=== PATIENT | female | born 1960 | race Caucasian/White ===

== ENCOUNTER 2021-01-18 14:08 | Emergency (ER) | payer OTHER ==
[2021-01-18 14:15] VITALS: RESP 16
[2021-01-18] MEDS ORDERED: diphenhydrAMINE 50 MG CAP PO STA (14:33)
[2021-01-18] MEDS ORDERED: methylPREDNISolone SOD SUCCI 125 MG/2 ML VIAL IV STA (14:33)
[2021-01-18] MEDS ORDERED: FAMOTIDINE 20 MG/2 ML VIAL IV STA (14:33)
[2021-01-18] MEDS ORDERED: SODIUM CHLORIDE 0.9% 1,000 ML IV STA (14:33)
--- NOTE | 2021-01-18 15:19 | XR ---
EXAMINATION TYPE: XR chest 2V DATE OF EXAM: 01/18/2021 COMPARISON: NONE HISTORY: Shortness of breath. TECHNIQUE: Frontal and lateral views of the chest are obtained. FINDINGS: There is no focal air space opacity, pleural effusion, or pneumothorax seen. The cardiac silhouette size is within normal limits. The osseous structures are intact. IMPRESSION: No acute cardiopulmonary process.
[2021-01-18 15:49] LABS: Basophils # (A) 0.1 k/uL (0-0.2); Basophils % (A) 1 %; Eosinophils # (A) 0.4 k/uL (0-0.7); Eosinophils % (A) 3 %; HCT 40.8 % (34.0-46.0); HGB 13.8 gm/dL (11.4-16.0); Lymphocytes # (A) 3.1 k/uL (1.0-4.8); Lymphocytes % (A) 24 %; MCH 31.8 pg (25.0-35.0); MCHC 33.8 g/dL (31.0-37.0); Mean Platelet Volume 8.3; Monocytes # (A) 0.8 k/uL (0-1.0); Monocytes % (A) 6 %; Neutrophils # (A) 8.3 k/uL (1.3-7.7); Neutrophils % (A) 65 %; Platelet Count 240 k/uL (150-450); RBC 4.33 m/uL (3.80-5.40); RDW 13.3 % (11.5-15.5); WBC 12.8 k/uL (3.8-10.6)
--- NOTE | 2021-01-18 15:52 | ED ---
Allergic Reaction HPI - General Chief complaint: Allergic Reaction Stated complaint: medicine allergy Time Seen by Provider: 01/18/21 14:17 Source: patient, family, RN notes reviewed Mode of arrival: wheelchair Limitations: no limitations - History of Present Illness Initial Comments: Patient is a 60-year-old female that presents to emergency department complaining of an ALLERGIC reaction to her new pain medication. The pain medication is called Belbuca. She notes that she started this medication 2 days ago and today she feels like she is having some shortness of breath. She is able to talk and swallow with no issue. She did not appear to be in any distress or pain while sitting up in bed during the exam interview. Daughter notes that patient was told to continue the medication unless the ER told her otherwise. She denied any chest pain headache nausea vomiting diarrhea constipation fever fatigue chills dysphagia feeling like her throat is swollen. - Related Data Allergies Allergy/AdvReac Type Severity Reaction Status Date / Time celecoxib [From Celebrex] Allergy Unknown Verified 01/18/21 14:14 Childhood duloxetine [From Cymbalta] Allergy Itching Verified 01/18/21 14:14 omeprazole [From Prilosec] Allergy Unknown Verified 01/18/21 14:14 Childhood Review of Systems ROS Statement: Those systems with pertinent positive or pertinent negative responses have been documented in the HPI. ROS Other: All systems not noted in ROS Statement are negative. Past Medical History Additional Past Medical History / Comment(s): back pain History of Any Multi-Drug Resistant Organisms: None Reported Past Surgical History: Orthopedic Surgery Past Psychological History: No Psychological Hx Reported Smoking Status: Former smoker Past Alcohol Use History: None Reported Past Drug Use History: None Reported General Exam Limitations: no limitations General appearance: alert, in no apparent distress Head exam: Present: atraumatic, normocephalic, normal inspection Eye exam: Present: normal appearance, PERRL, EOMI. Absent: scleral icterus, conjunctival injection, periorbital swelling Neck exam: Present: normal inspection Respiratory exam: Present: normal lung sounds bilaterally. Absent: respiratory distress, wheezes, rales, rhonchi, stridor Cardiovascular Exam: Present: regular rate, normal rhythm, normal heart sounds. Absent: systolic murmur, diastolic murmur, rubs, gallop, clicks GI/Abdominal exam: Present: soft, normal bowel sounds. Absent: distended, tenderness, guarding, rebound, rigid Extremities exam: Present: normal inspection, normal capillary refill. Absent: tenderness, pedal edema, joint swelling, calf tenderness Neurological exam: Present: alert, oriented X3 Psychiatric exam: Present: normal affect, normal mood Skin exam: Present: warm, dry, intact, normal color. Absent: rash Course Vital Signs 01/18/21 14:10 Temperature 98.1 F Pulse Rate 107 H Respiratory 16 Rate Blood Pressure 122/83 O2 Sat by Pulse 98 Oximetry Medical Decision Making - Medical Decision Making 60-year-old female complaining of ALLERGIC reaction to her new pain medication. Basic labs, chest x-ray, EKG, 125 mg of Solu-Medrol, 50 mg of Benadryl, 20 mg of Pepcid ordered. EKG within normal limits, chest x-ray no acute cardiopulmonary process. Case discussed with Dr. Littlejohn, patient can discharge home with follow-up to pain medicine DrTiff to discuss possibly changing medication. - Lab Data Result diagrams: 01/18/21 14:53 01/18/21 14:53 Lab Results 01/18/21 01/18/21 Range/Units 14:53 14:53 WBC 12.8 H (3.8-10.6) k/uL RBC 4.33 (3.80-5.40) m/uL Hgb 13.8 (11.4-16.0) gm/dL Hct 40.8 (34.0-46.0) % MCV 94.0 (80.0-100.0) fL MCH 31.8 (25.0-35.0) pg MCHC 33.8 (31.0-37.0) g/dL RDW 13.3 (11.5-15.5) % Plt Count 240 (150-450) k/uL MPV 8.3 Neutrophils % 65 % Lymphocytes % 24 % Monocytes % 6 % Eosinophils % 3 % Basophils % 1 % Neutrophils # 8.3 H (1.3-7.7) k/uL Lymphocytes # 3.1 (1.0-4.8) k/uL Monocytes # 0.8 (0-1.0) k/uL Eosinophils # 0.4 (0-0.7) k/uL Basophils # 0.1 (0-0.2) k/uL Sodium 140 (137-145) mmol/L Potassium 4.5 (3.5-5.1) mmol/L Chloride 108 H (98-107) mmol/L Carbon Dioxide 24 (22-30) mmol/L Anion Gap 8 mmol/L BUN 14 (7-17) mg/dL Creatinine 0.68 (0.52-1.04) mg/dL Est GFR (CKD-EPI)AfAm >90 (>60 ml/min/1.73 sqM) Est GFR (CKD-EPI)NonAf >90 (>60 ml/min/1.73 sqM) Glucose 110 H (74-99) mg/dL Calcium 9.1 (8.4-10.2) mg/dL - EKG Data -: EKG Interpreted by Mi EKG shows normal: sinus rhythm Rate: normal EKG Comments: Ventricular rate 89 bpm, MN interval 166 ms, QRS duration 80 ms, QTC 433 ms, PRT axes 70/49/41. Normal sinus rhythm, normal ECG. - Radiology Data Radiology results: report reviewed, image reviewed Chest x-ray: No acute cardiopulmonary process. Disposition Clinical Impression: Allergic reaction to drug Disposition: HOME SELF-CARE Condition: Stable Instructions (If sedation given, give patient instructions): Allergies (ED) Additional Instructions: Please return to the Emergency Department if symptoms worsen or any other concerns. Follow-up with pain medication prescribing doctor to discuss alternatives. Quit taking medication until he can speak with your primary. Take Benadryl as needed for continuing symptoms. Is patient prescribed a controlled substance at d/c from ED?: No Referrals: None,Stated [Primary Care Provider] - 1-2 days Time of Disposition: 16:21
[2021-01-18 16:07] LABS: African American GFR (CKD) >90 (>60 ml/min/1.73 sqM); Anion Gap 8 mmol/L; Blood Urea Nitrogen 14 mg/dL (7-17); Calcium 9.1 mg/dL (8.4-10.2); Carbon Dioxide 24 mmol/L (22-30); Chloride 108 mmol/L (98-107); Glucose 110 mg/dL (74-99); Non-African American GFR(CKD) >90 (>60 ml/min/1.73 sqM); Potassium 4.5 mmol/L (3.5-5.1); Sodium 140 mmol/L (137-145)
[2021-01-18 16:39] VITALS: BP 134/78; PULSE 78; TEMP 98
== END 2021-01-18 16:38 | disposition home or self-care (01) ==
LOC: EC 14:08
DX: R06.02 Shortness of breath (principal); T40.695A Adverse effect of other narcotics, initial encounter; Z88.6 Allergy status to analgesic agent; Z88.8 Allergy status to other drugs, medicaments and biological substances; Z87.891 Personal history of nicotine dependence
CPT/HCPCS: 99285; 96374; 96375; 96361; 36415; 80048; 85025; 71046; J2930; 93005

== ENCOUNTER 2023-09-10 20:08 | Inpatient (IN) | payer BC ==
[2023-09-10] MEDS: ACETAMINOPHEN TAB 325 MG TAB PO STA (21:22)
[2023-09-10] MEDS: SODIUM CHLORIDE 0.9% 1,000 ML IV ONE (21:22)
[2023-09-10 21:33] LABS: Basophils % (A) 0 %; Eosinophils # (A) 0.1 k/uL (0-0.7); Eosinophils % (A) 0 %; Lymphocytes # (A) 1.3 k/uL (1.0-4.8); Lymphocytes % (A) 9 %; MCH 32.5 pg (25.0-35.0); MCHC 33.5 g/dL (31.0-37.0); Mean Platelet Volume 9.6; Monocytes # (A) 1.4 k/uL (0-1.0); Monocytes % (A) 10 %; Neutrophils # (A) 11.4 k/uL (1.3-7.7); Neutrophils % (A) 79 %; Platelet Count 203 k/uL (150-450); RBC 3.71 m/uL (3.80-5.40); RDW 13.5 % (11.5-15.5); WBC 14.5 k/uL (3.8-10.6)
[2023-09-10 21:43] LABS: ALT 15 U/L (4-34); AST 19 U/L (14-36); African American GFR (CKD) 64 (>60 ml/min/1.73 sqM); Albumin 3.3 g/dL (3.5-5.0); Alkaline Phosphatase 94 U/L (38-126); Anion Gap 10 mmol/L; Blood Urea Nitrogen 20 mg/dL (7-17); Calcium 8.7 mg/dL (8.4-10.2); Carbon Dioxide 17 mmol/L (22-30); Chloride 109 mmol/L (98-107); Glucose 143 mg/dL (74-99); Non-African American GFR(CKD) 55 (>60 ml/min/1.73 sqM); Potassium 3.8 mmol/L (3.5-5.1); Sodium 136 mmol/L (137-145); Total Bilirubin 0.7 mg/dL (0.2-1.3)
[2023-09-10 21:44] LABS: Lactic Acid, Venous 1.3 mmol/L (0.7-2.0)
[2023-09-10 22:05] LABS: INR 0.9 (<1.2); Partial Thromboplastin Time 22.3 sec (22.0-30.0); Prothrombin Time 10.5 sec (10.0-12.5)
--- NOTE | 2023-09-10 22:05 | CT ---
EXAMINATION TYPE: CT brain wo con CT DLP: 1042.4 mGycm, Automated exposure control for dose reduction was used. DATE OF EXAM: 09/10/2023 9:43 PM COMPARISON: None CLINICAL INDICATION:Female, 63 years old with history of Altered mental status, AMS. Weakness. TECHNIQUE: Brain: Axial CT images of the brain were obtained with coronal and sagittal reformats created and rev iewed. Contrast used: None. Oral contrast used: None. FINDINGS: Brain: Extra-axial spaces: No abnormal extra-axial fluid collections. Ventricular system: Within normal limits Cerebral parenchyma: No acute intraparenchymal hemorrhage or mass effect. The patel-white junction is well differentiated. Cerebellum: Unremarkable. Mass effect: No evidence of midline shift. Intracranial vasculature: unremarkable Soft tissues: Normal. Calvarium/osseous structures: No depressed skull fracture. Paranasal sinuses and mastoid air cells: Mild scattered paranasal sinus disease most pronounced in le ft maxillary sinus. Visualized orbits: Bilateral aphakia IMPRESSION: No acute intracranial process.
--- NOTE | 2023-09-10 22:58 | XR ---
EXAM: XR Chest, 2 Views CLINICAL HISTORY: ITS.REASON XR Reason: altered mental status TECHNIQUE: Frontal and lateral views of the chest. COMPARISON: No relevant prior studies available. FINDINGS: Lungs: Unremarkable. No consolidation. Pleural space: Unremarkable. No pneumothorax. Heart: Unremarkable. No cardiomegaly. Mediastinum: Unremarkable. Normal mediastinal contour. Bones/joints: Unremarkable. No acute fracture. IMPRESSION: No consolidation.
[2023-09-10 23:35] LABS: Appearance,Urine Clear (Clear); Bilirubin,Urine Negative (Negative); Blood,Urine Negative (Negative); Color,Urine Yellow; Glucose,Urine (UA) Negative (Negative); Hyaline Casts,Urine 1 /lpf (0-2); Ketones,Urine Negative (Negative); Leukocyte Esterase,Urine Moderate (Negative); Mucus,Urine Rare /hpf; Nitrite,Urine Negative (Negative); Protein,Urine 1+ (Negative); RBC,Urine <1 /hpf (0-5); Specific Gravity,Urine 1.015 (1.001-1.035); Squamous Epithelial Cell,Urine 1 /hpf (0-4); WBC,Urine 24 /hpf (0-5)
[2023-09-11] MEDS: cefTRIAXone IN SWFI 1,000 MG/10 ML SYRINGE IVP STA (01:02)
[2023-09-11] MEDS: SODIUM CHLORIDE 0.9% 1,000 ML IV ONE (01:07)
--- NOTE | 2023-09-11 01:43 | ED ---
Altered Mental Status HPI - General Chief Complaint: Altered Mental Status Stated Complaint: AMS Time Seen by Provider: 09/10/23 20:43 Source: family Mode of arrival: wheelchair Limitations: altered mental status - History of Present Illness Initial Comments: 63-year-old female presenting with chief complaint of altered mental status. Patient is brought in by her daughter who states that she started having confusion today. She states that she got some text messages from her that did not make sense and when she was talking to her on the phone she was speaking in a nonsensical fashion. She notes that the patient was recently started on mirtazapine and melixetine, and she started taking them today. Patient states that she feels tired. She denies any chest pain, difficulty breathing, abdominal pain, nausea, vomiting, headache. - Related Data Home Medications Medication Instructions Recorded Confirmed Alpha Lipoic Acid 600 mg PO DAILY 09/10/23 09/10/23 Baclofen [Lioresal] 20 mg PO Q6H 09/10/23 09/10/23 Buprenorphine [Butrans 5 MCG/HR] 1 patch TRANSDERM DIRECTED 09/10/23 09/10/23 Famotidine [Pepcid] 20 mg PO DAILY 09/10/23 09/10/23 Gabapentin 800 mg PO QID PRN 09/10/23 09/10/23 Ibuprofen [Motrin] 800 mg PO Q8H PRN 09/10/23 09/10/23 Mexiletine HCl 150 mg PO DAILY 09/10/23 09/10/23 Mirtazapine 30 mg PO HS 09/10/23 09/10/23 Pantoprazole [Protonix] 40 mg PO DAILY 09/10/23 09/10/23 Sertraline [Zoloft] 100 mg PO DAILY 09/10/23 09/10/23 buPROPion HCL [Wellbutrin SR] 200 mg PO DAILY 09/10/23 09/10/23 Allergies Allergy/AdvReac Type Severity Reaction Status Date / Time celecoxib [From Celebrex] Allergy Unknown Verified 09/10/23 22:08 Childhood duloxetine [From Cymbalta] Allergy Itching Verified 09/10/23 22:08 omeprazole [From Prilosec] Allergy Unknown Verified 09/10/23 22:08 Childhood Review of Systems ROS Statement: Those systems with pertinent positive or pertinent negative responses have been documented in the HPI. ROS Other: All systems not noted in ROS Statement are negative. Past Medical History Additional Past Medical History / Comment(s): back pain History of Any Multi-Drug Resistant Organisms: None Reported Past Surgical History: Orthopedic Surgery Past Psychological History: No Psychological Hx Reported Smoking Status: Former smoker Past Alcohol Use History: None Reported Past Drug Use History: None Reported General Exam Limitations: altered mental status General appearance: alert, in no apparent distress Head exam: Present: atraumatic, normocephalic Eye exam: Present: normal appearance, PERRL, EOMI Neck exam: Present: normal inspection Respiratory exam: Present: normal lung sounds bilaterally. Absent: respiratory distress, wheezes, rales, rhonchi, stridor Cardiovascular Exam: Present: regular rate, normal rhythm, normal heart sounds. Absent: systolic murmur, diastolic murmur, rubs, gallop, clicks GI/Abdominal exam: Present: soft. Absent: distended, tenderness, guarding, rebound, rigid Neurological exam: Present: alert, altered Expanded Eye Response: (4) open spontaneously Motor Response: (6) obeys commands Verbal Response: (4) confused conversation [place] Total: 14 Skin exam: Present: warm, dry Course Vital Signs 09/10/23 09/10/23 09/10/23 20:10 20:34 22:38 Temperature 99.9 F H Pulse Rate 90 Respiratory 18 Rate Blood Pressure 76/47 103/60 90/51 O2 Sat by Pulse 96 Oximetry 09/10/23 09/10/23 09/11/23 22:55 23:00 01:08 Temperature 97.9 F Pulse Rate 77 77 Respiratory 16 14 Rate Blood Pressure 96/52 104/60 O2 Sat by Pulse 96 98 Oximetry Medical Decision Making - Medical Decision Making Was pt. sent in by a medical professional or institution (, PA, EXPEDITION SUPERVISOR, urgent care, hospital, or [facility]...) When possible be specific @ -No Did you speak to anyone other than the patient for history (EMS, parent, family, police, friend...)? What history was obtained from this source @ -Daughter Did you review nursing and triage notes (agree or disagree)? Why? @ -I reviewed and agree with nursing and triage notes Were old charts reviewed (outside hosp., previous admission, EMS record, old EKG, old radiological studies, urgent care reports/EKG's, [facility] records)? Report findings @ -No old charts were reviewed Differential Diagnosis (chest pain, altered mental status, abdominal pain women, abdominal pain men, vaginal bleeding, weakness, fever, dyspnea, syncope, headache, dizziness, GI bleed, back pain, seizure, CVA, palpatations, mental health, musculoskeletal)? @ -MDM Differential Altered Mental Status: Hypoglycemia, DKA, hypercapnia, ETOH, overdose, CO poisoning, trauma, myxedema coma, HTN encephalopathy, infection, encephalitis, psychosis, intercranial hemorrhage, hepatic encephalopathy, meningitis, CVA this is not meant to be an all-inclusive list EKG interpreted by me (3pts min.). @ -Sinus rhythm ventricular rate 89. NV interval 161. QRS 89. QT 374. QTc 420. Normal axis. X-rays interpreted by me (1pt min.). @ -Chest x-ray shows no consolidation CT interpreted by me (1pt min.). @ -CT brain without contrast shows no acute intracranial process U/S interpreted by me (1pt. min.). @ -None done What testing was considered but not performed or refused? (CT, X-rays, U/S, labs)? Why? @ -None What meds were considered but not given or refused? Why? @ -None Did you discuss the management of the patient with other professionals (professionals i.e. , PA, EXPEDITION SUPERVISOR, lab, RT, psych nurse, renal social worker, barrel coater, teacher, landcare officer, showcase trimmer)? Give summary @ -My attending spoke with the [facility] provider on-call who accepted admission Was smoking cessation discussed for >3mins.? @ -No Was critical care preformed (if so, how long)? @ -No Were there social determinants of health that impacted care today? How? (Homelessness, low income, unemployed, alcoholism, drug addiction, transportation, low edu. Level, literacy, decrease access to med. care, group home, rehab)? @ -No Was there de-escalation of care discussed even if they declined (Discuss DNR or withdrawal of care, Hospice)? DNR status @ -No What co-morbidities impacted this encounter? (DM, HTN, Smoking, COPD, CAD, Cancer, CVA, ARF, Chemo, Hep., AIDS, mental health diagnosis, sleep apnea, morbid obesity)? @ -None Was patient admitted / discharged? Hospital course, mention meds given and route, prescriptions, significant lab abnormalities, going to OR and other pertinent info. @ -63-year-old female presenting with chief complaint of altered mental status and weakness. On presentation patient has a temperature of 99.9 and hypotension, she is given Tylenol and started on 2 L fluid bolus. History and physical exam are performed. Equal strength to the bilateral extremities, facial symmetry follows commands. Patient is able to answer most of my questions, sometimes she does drift off in conversation. Lab work shows WBC 14.5. Sodium 136 chloride 109 carbon dioxide 17. BUN 20 and creatinine 1.09, no recent values for comparison. Glucose 143. Negative troponin. Urine shows moderate leukocytes with 24 WBCs, blood cultures are drawn and patient is given 1 g Rocephin. She is negative for influenza, RSV, and COVID. CT brain shows no acute process and chest x-ray shows no acute consolidation. I suspect that this altered mental status is due to a combination of toxic encephalopathy induced by multiple sedative medications and mild UTI. Patient and daughter are educated on today's findings. Patient will be admitted for further management and monitoring. Patient and daughter are agreeable with this plan. I discussed this case with my attending Dr. Peter. Undiagnosed new problem with uncertain prognosis? @ -No Drug Therapy requiring intensive monitoring for toxicity (Heparin, Nitro, Insulin, Cardizem)? @ -No Were any procedures done? @ -No Diagnosis/symptom? @ -Toxic encephalopathy, altered mental status, generalized weakness, UTI Acute, or Chronic, or Acute on Chronic? @ -Acute Uncomplicated (without systemic symptoms) or Complicated (systemic symptoms)? @ -Complicated Side effects of treatment? @ -No Exacerbation, Progression, or Severe Exacerbation? @ -No Poses a threat to life or bodily function? How? (Chest pain, USA, MS, pneumonia, PE, COPD, DKA, ARF, appy, cholecystitis, CVA, Diverticulitis, Homicidal, Suicidal, threat to staff... and all critical care pts) @ -Yes - Lab Data Result diagrams: 09/10/23 20:41 09/10/23 20:41 Lab Results 09/10/23 09/10/23 09/10/23 Range/Units 20:41 20:41 20:41 WBC 14.5 H (3.8-10.6) k/uL RBC 3.71 L (3.80-5.40) m/uL Hgb 12.0 (11.4-16.0) gm/dL Hct 36.0 (34.0-46.0) % MCV 97.0 (80.0-100.0) fL MCH 32.5 (25.0-35.0) pg MCHC 33.5 (31.0-37.0) g/dL RDW 13.5 (11.5-15.5) % Plt Count 203 (150-450) k/uL MPV 9.6 Neutrophils % 79 % Lymphocytes % 9 % Monocytes % 10 % Eosinophils % 0 % Basophils % 0 % Neutrophils # 11.4 H (1.3-7.7) k/uL Lymphocytes # 1.3 (1.0-4.8) k/uL Monocytes # 1.4 H (0-1.0) k/uL Eosinophils # 0.1 (0-0.7) k/uL Basophils # 0.0 (0-0.2) k/uL PT 10.5 (10.0-12.5) sec INR 0.9 (<1.2) APTT 22.3 (22.0-30.0) sec Sodium 136 L (137-145) mmol/L Potassium 3.8 (3.5-5.1) mmol/L Chloride 109 H (98-107) mmol/L Carbon Dioxide 17 L (22-30) mmol/L Anion Gap 10 mmol/L BUN 20 H (7-17) mg/dL Creatinine 1.09 H (0.52-1.04) mg/dL Est GFR (CKD-EPI)AfAm 64 (>60 ml/min/1.73 sqM) Est GFR (CKD-EPI)NonAf 55 (>60 ml/min/1.73 sqM) Glucose 143 H (74-99) mg/dL Plasma Lactic Acid Davion (0.7-2.0) mmol/L Calcium 8.7 (8.4-10.2) mg/dL Total Bilirubin 0.7 (0.2-1.3) mg/dL AST 19 (14-36) U/L ALT 15 (4-34) U/L Alkaline Phosphatase 94 (38-126) U/L Ammonia (<30) umol/L Troponin I (0.000-0.034) ng/mL Total Protein 6.0 L (6.3-8.2) g/dL Albumin 3.3 L (3.5-5.0) g/dL Urine Color Urine Appearance (Clear) Urine pH (5.0-8.0) Ur Specific [place] (1.001-1.035) Urine Protein (Negative) Urine Glucose (UA) (Negative) Urine Ketones (Negative) Urine Blood (Negative) Urine Nitrite (Negative) Urine Bilirubin (Negative) Urine Urobilinogen (<2.0) mg/dL Ur Leukocyte Esterase (Negative) Urine RBC (0-5) /hpf Urine WBC (0-5) /hpf Ur Squamous Epith Cells (0-4) /hpf Hyaline Casts (0-2) /lpf Urine Mucus (None) /hpf Influenza Type A (PCR) (Not Detectd) Influenza Type B (PCR) (Not Detectd) RSV (PCR) (Not Detectd) SARS-CoV-2 (PCR) (Not Detectd) 09/10/23 09/10/23 09/10/23 Range/Units 20:41 20:41 21:13 WBC (3.8-10.6) k/uL RBC (3.80-5.40) m/uL Hgb (11.4-16.0) gm/dL Hct (34.0-46.0) % MCV (80.0-100.0) fL MCH (25.0-35.0) pg MCHC (31.0-37.0) g/dL RDW (11.5-15.5) % Plt Count (150-450) k/uL MPV Neutrophils % % Lymphocytes % % Monocytes % % Eosinophils % % Basophils % % Neutrophils # (1.3-7.7) k/uL Lymphocytes # (1.0-4.8) k/uL Monocytes # (0-1.0) k/uL Eosinophils # (0-0.7) k/uL Basophils # (0-0.2) k/uL PT (10.0-12.5) sec INR (<1.2) APTT (22.0-30.0) sec Sodium (137-145) mmol/L Potassium (3.5-5.1) mmol/L Chloride (98-107) mmol/L Carbon Dioxide (22-30) mmol/L Anion Gap mmol/L BUN (7-17) mg/dL Creatinine (0.52-1.04) mg/dL Est GFR (CKD-EPI)AfAm (>60 ml/min/1.73 sqM) Est GFR (CKD-EPI)NonAf (>60 ml/min/1.73 sqM) Glucose (74-99) mg/dL Plasma Lactic Acid Davion 1.3 (0.7-2.0) mmol/L Calcium (8.4-10.2) mg/dL Total Bilirubin (0.2-1.3) mg/dL AST (14-36) U/L ALT (4-34) U/L Alkaline Phosphatase (38-126) U/L Ammonia <9 (<30) umol/L Troponin I <0.012 (0.000-0.034) ng/mL Total Protein (6.3-8.2) g/dL Albumin (3.5-5.0) g/dL Urine Color Urine Appearance (Clear) Urine pH (5.0-8.0) Ur Specific [place] (1.001-1.035) Urine Protein (Negative) Urine Glucose (UA) (Negative) Urine Ketones (Negative) Urine Blood (Negative) Urine Nitrite (Negative) Urine Bilirubin (Negative) Urine Urobilinogen (<2.0) mg/dL Ur Leukocyte Esterase (Negative) Urine RBC (0-5) /hpf Urine WBC (0-5) /hpf Ur Squamous Epith Cells (0-4) /hpf Hyaline Casts (0-2) /lpf Urine Mucus (None) /hpf Influenza Type A (PCR) Not Detected (Not Detectd) Influenza Type B (PCR) Not Detected (Not Detectd) RSV (PCR) Not Detected (Not Detectd) SARS-CoV-2 (PCR) Not Detected (Not Detectd) 09/10/23 Range/Units 23:00 WBC (3.8-10.6) k/uL RBC (3.80-5.40) m/uL Hgb (11.4-16.0) gm/dL Hct (34.0-46.0) % MCV (80.0-100.0) fL MCH (25.0-35.0) pg MCHC (31.0-37.0) g/dL RDW (11.5-15.5) % Plt Count (150-450) k/uL MPV Neutrophils % % Lymphocytes % % Monocytes % % Eosinophils % % Basophils % % Neutrophils # (1.3-7.7) k/uL Lymphocytes # (1.0-4.8) k/uL Monocytes # (0-1.0) k/uL Eosinophils # (0-0.7) k/uL Basophils # (0-0.2) k/uL PT (10.0-12.5) sec INR (<1.2) APTT (22.0-30.0) sec Sodium (137-145) mmol/L Potassium (3.5-5.1) mmol/L Chloride (98-107) mmol/L Carbon Dioxide (22-30) mmol/L Anion Gap mmol/L BUN (7-17) mg/dL Creatinine (0.52-1.04) mg/dL Est GFR (CKD-EPI)AfAm (>60 ml/min/1.73 sqM) Est GFR (CKD-EPI)NonAf (>60 ml/min/1.73 sqM) Glucose (74-99) mg/dL Plasma Lactic Acid Dav[place] (0.7-2.0) mmol/L Calcium (8.4-10.2) mg/dL Total Bilirubin (0.2-1.3) mg/dL AST (14-36) U/L ALT (4-34) U/L Alkaline Phosphatase (38-126) U/L Ammonia (<30) umol/L Troponin I (0.000-0.034) ng/mL Total Protein (6.3-8.2) g/dL Albumin (3.5-5.0) g/dL Urine Color Yellow Urine Appearance Clear (Clear) Urine pH 7.0 (5.0-8.0) Ur Specific [place] 1.015 (1.001-1.035) Urine Protein 1+ H (Negative) Urine Glucose (UA) Negative (Negative) Urine Ketones Negative (Negative) Urine Blood Negative (Negative) Urine Nitrite Negative (Negative) Urine Bilirubin Negative (Negative) Urine Urobilinogen 4.0 (<2.0) mg/dL Ur Leukocyte Esterase Moderate H (Negative) Urine RBC <1 (0-5) /hpf Urine WBC 24 H (0-5) /hpf Ur Squamous Epith Cells 1 (0-4) /hpf Hyaline Casts 1 (0-2) /lpf Urine Mucus Rare H (None) /hpf Influenza Type A (PCR) (Not Detectd) Influenza Type B (PCR) (Not Detectd) RSV (PCR) (Not Detectd) SARS-CoV-2 (PCR) (Not Detectd) Disposition Clinical Impression: Toxic encephalopathy, UTI (urinary tract infection) Disposition: ADMITTED IP TO THIS HOSP Condition: Serious Referrals: Yahaira Bahena, NPC [Primary Care Provider] - 1-2 days Time of Disposition: 01:43
[2023-09-11] MEDS ORDERED: NALOXONE 0.4 MG/ML 1 ML VIAL IV PRN (02:32)
[2023-09-11] MEDS: GABAPENTIN 400 MG CAP PO STA (02:36)
[2023-09-11] MEDS: SODIUM CHLORIDE 0.9% 1,000 ML IV SCH (02:41)
[2023-09-11] MEDS: ACETAMINOPHEN TAB 325 MG TAB PO PRN (04:52)
[2023-09-11] MEDS ORDERED: IBUPROFEN 800 MG TAB PO PRN (12:43)
[2023-09-11] MEDS ORDERED: BUPRENORPHINE TRANSDERM SCH (12:45)
[2023-09-11] MEDS: BACLOFEN 10 MG TAB PO SCH (14:13)
[2023-09-11] MEDS ORDERED: VANCOMYCIN IV PER PHARMACY 1 EACH MISC MISCELLANE PRN (16:18)
--- NOTE | 2023-09-11 17:13 | HP ---
HISTORY AND PHYSICAL CHIEF COMPLAINT: Change in mental status. HISTORY OF PRESENT ILLNESS: This is a 63-year-old woman with a past medical history of multiple medical problems, uses a wheelchair because of chronic back pain and neuropathy and unsteadiness. Apparently, the daughter was communicating through text and found some abnormality, and the patient was taken to [facility]. The patient on multiple neuro- psychiatry medications also. The patient treatment. Currently, the patient is slightly more alert, but still confused. COVID-[address] scan showed no acute abnormality. PAST MEDICAL HISTORY: Reviewed include back pain, gait dysfunction. Rest of medications and the chart was also reviewed. HOME MEDICATIONS: Reviewed include Protonix. Doses and rest of medications noted. The patient takes multiple psychiatric medications. ALLERGIES: Reviewed, include Cymbalta. FAMILY HISTORY: No history of heart disease or strokes in the family. SOCIAL HISTORY: Previous history of smoking. REVIEW OF SYSTEMS: Could not be taken as the patient is confused. PHYSICAL EXAMINATION: VITAL SIGNS: Pulse is 111, blood pressure 130/70, respiration 15, temperature is 103. HEENT: Conjunctivae normal. NECK: No jugular venous distention. CARDIOVASCULAR: S1, S2. RESPIRATION: Few scattered rhonchi. ABDOMEN: Soft, nontender. NERVOUS SYSTEM: Diffusely weak especially the lower limb wasting and weakness. SKIN: No rash, No ulcer, rash, bleeding. LABORATORY DATA: Reviewed. WBC 14.5. ASSESSMENT: 1. Acute urinary tract infection with severe sepsis. 2. Increased creatinine with acute renal failure. 3. Hyponatremia. 4. Change in mental status, acute metabolic encephalopathy. 5. History of pain. 6. Gait dysfunction. PLAN/DISCUSSION: This is a 63-year-old who presented with multiple complex medical issues. At this time, I recommend to continue the current management treatment, recommend empiric antibiotics. I would recommend infectious disease evaluation. Neurology also will be consulted. PT/OT evaluation. Some of the psych medications will be held. The overall picture could be a combination of UTI sepsis and metabolic encephalopathy induced by multiple psych medication also, but we will watch the sensorium very closely and reintroduce those chronic medications also. Otherwise, DVT prophylaxis, see orders for details. Guarded prognosis because of multiple complex medical issues and further recommendations to follow. MMODL / IJN: [id number] / [facility]
[2023-09-11] MEDS ORDERED: ACETAMINOPHEN TAB 325 MG TAB PO PRN (17:20)
[2023-09-11] MEDS: VANCOMYCIN 1,500 MG in SODIUM CHLORIDE 0.9% 500 ML 500 ML IVPB ONE (17:23)
[2023-09-11] MEDS: THIAMINE 100 MG TAB PO SCH (17:29)
[2023-09-11] MEDS: Acetaminophen-Codeine 300-30mg TAB PO STA (17:29)
--- NOTE | 2023-09-11 17:46 | CT ---
EXAMINATION TYPE: CT pelvis wo con DATE OF EXAM: 09/11/2023 COMPARISON: None HISTORY: R/O L gluteal abscess. Pain and swelling. CT DLP: 224.4 mGycm Automated exposure control for dose reduction was used. FINDINGS: Moderate to severe ill-defined fluid and fat stranding over the left gluteal muscle extending lateral ly over the left hip and posterior thigh. No well-formed fluid collection or thick wall drainable abs cess is seen. No abnormal bowel dilatation. Moderate narrowing of both hip joints. No free fluid in the pelvis. IMPRESSION: Soft tissue inflammatory change or cellulitis over the left gluteal region extending over the left posterior thigh and lateral hip. No drainable abscess is noted.
[2023-09-11] MEDS: HEPARIN SODIUM,PORCINE 5,000 UNIT/ML 1 ML VIAL SQ SCH (20:37)
[2023-09-11] MEDS: GABAPENTIN 400 MG CAP PO PRN (20:38)
--- NOTE | 2023-09-11 23:09 | P.CONS ---
History of Present Illness - Reason for Consult Consult date: 09/11/23 Sepsis Requesting physician: Tony Yang - Chief Complaint Mental status changes x 1 day - History of Present Illness Patient is a 63-year female with a past medical history significant for chronic back pain depression was brought into the ER for evaluation of m ental status changes daughter mention the patient started having confusion the day of presentation to the hospital apparently the patient got some weird text messages from her that was not making any sense subsequently daughter visited her and noticed her to be not making any sense for the patient was brought into the hospital on arrival to the ER patient did have a low-grade fever of 99.9 and subsequently spiked a fever of 103 F patient was mildly tachycardic but not hypotensive or hypoxic and no need for supplemental oxygen. Did have white count of 14.5 BUN/creatinine has been mildly elevated liver isms abdominal urine was mildly positive with moderate leukocyte esterase 24 WBC influenza RSV COVID testing was negative patient did have a chest x-ray no consolidation patient was started on Rocephin concerning for possible UTI infectious disease was consulted for further management of antibiotic therapy. Patient did have mild elevation denies any headache the patient is aware that she is in the hospital no URI symptoms no chest pain no shortness of breath or cough no nausea no vomiting she was complaining of some lower abdominal pain however unable to quantify it any further patient apparently also have a pressure ulcer to the left gluteal area that has been there for him couple of weeks now patient be complaining of pain to the left gluteal area mild to moderate intensity without any radiation with associated swelling redness but no drainage Review of Systems Positive point and negatives has been mentioned in the HPI, complete review of systems was performed and all other systems are negative Past Medical History Additional Past Medical History / Comment(s): back pain History of Any Multi-Drug Resistant Organisms: None Reported Past Surgical History: Orthopedic Surgery Past Psychological History: No Psychological Hx Reported Smoking Status: Former smoker Past Alcohol Use History: None Reported Past Drug Use History: None Reported - Past Family History Mother Family Medical History: Cancer Additional Family Medical History / Comment(s): lung cancer Medications and Allergies Home Medications Medication Instructions Recorded Confirmed Type Alpha Lipoic Acid 600 mg PO DAILY 09/10/23 09/10/23 History Famotidine [Pepcid] 20 mg PO DAILY 09/10/23 09/10/23 History Ibuprofen [Motrin] 800 mg PO Q8H PRN 09/10/23 09/10/23 History Mexiletine HCl 150 mg PO DAILY 09/10/23 09/10/23 History Mirtazapine 30 mg PO HS 09/10/23 09/10/23 History Sertraline [Zoloft] 100 mg PO DAILY 09/10/23 09/10/23 History buPROPion HCL [Wellbutrin SR] 200 mg PO DAILY 09/10/23 09/10/23 History Acetaminophen Tab [Tylenol] 650 mg PO Q6HR PRN tab 09/17/23 Rx Cyanocobalamin [Vitamin B-12] 1,000 mcg PO DAILY tab 09/17/23 Rx Folic Acid 1 mg PO DAILY@1200 tab 09/17/23 Rx Gabapentin 300 mg PO TID #4 tab 09/17/23 Rx Heparin Sodium,Porcine (1 ml) 5,000 unit SQ Q12HR each 09/17/23 Rx [Heparin Sodium] Megestrol [Megace] 80 mg PO DAILY tab 09/17/23 Rx Multivitamins, Thera [Multivitamin 1 each PO DAILY@1200 tab 09/17/23 Rx (formulary)] Thiamine [Vitamin B-1] 100 mg PO BID-W/MEALS tab 09/17/23 Rx Vancomycin 1,500 mg IVPB Q16H 14 Days #14 each 09/17/23 Rx Allergies Allergy/AdvReac Type Severity Reaction Status Date / Time celecoxib [From Celebrex] Allergy Unknown Verified 09/10/23 22:08 Childhood duloxetine [From Cymbalta] Allergy Itching Verified 09/10/23 22:08 omeprazole [From Prilosec] Allergy Unknown Verified 09/10/23 22:08 Childhood Physical Exam Vitals: Vital Signs Temp Pulse Resp BP Pulse Ox 09/11/23 12:46 100.4 F H 09/11/23 11:41 103.0 F H 09/11/23 11:00 111 H 15 134/72 97 09/11/23 10:00 95 20 129/65 98 09/11/23 08:00 99 F 82 20 96/54 99 09/11/23 04:55 95 18 118/91 99 09/11/23 04:51 101.2 F H 09/11/23 01:08 77 14 104/60 98 09/10/23 23:00 97.9 F 77 16 96 09/10/23 22:55 96/52 09/10/23 22:38 90/51 09/10/23 20:34 103/60 09/10/23 20:10 99.9 F H 90 18 76/47 96 Intake and Output 09/10/23 09/11/23 09/11/23 22:59 06:59 14:59 Other: Weight 72.575 kg GENERAL DESCRIPTION: Middle-aged female lying in bed, no distress. No tachypnea or accessory muscle of respiration use. HEENT: Shows Pallor , no scleral icterus. Oral mucous membrane is dry. No pharyngeal erythema or thrush NECK: Trachea central, no thyromegaly. LUNGS: Unlabored breathing. Clear to auscultation anteriorly. No wheeze or crackle. HEART: S1, S2, regular rate and rhythm. No loud murmur ABDOMEN: Soft, no tenderness , guarding or rigidity, no organomegaly EXTREMITIES: No edema of feet. SKIN: Patient did have a area of erythema and some skin necrosis to the left gluteal area with small draining area cultures were obtained which is warm and tender to touch NEUROLOGICAL: The patient is awake, alert, oriented x3, mood and affect normal. Results CBC & Chem 7: 09/14/23 07:38 09/16/23 06:17 Labs: Abnormal Lab Results - Last 24 Hours (Table) 09/10/23 09/10/23 09/10/23 Range/Units 20:41 20:41 23:00 WBC 14.5 H (3.8-10.6) k/uL RBC 3.71 L (3.80-5.40) m/uL Neutrophils # 11.4 H (1.3-7.7) k/uL Monocytes # 1.4 H (0-1.0) k/uL Sodium 136 L (137-145) mmol/L Chloride 109 H (98-107) mmol/L Carbon Dioxide 17 L (22-30) mmol/L BUN 20 H (7-17) mg/dL Creatinine 1.09 H (0.52-1.04) mg/dL Glucose 143 H (74-99) mg/dL Total Protein 6.0 L (6.3-8.2) g/dL Albumin 3.3 L (3.5-5.0) g/dL Urine Protein 1+ H (Negative) Ur Leukocyte Esterase Moderate H (Negative) Urine WBC 24 H (0-5) /hpf Urine Mucus Rare H (None) /hpf Assessment and Plan (1) Sepsis Current Visit: Yes Status: Acute Code(s): A41.9 - SEPSIS, UNSPECIFIED ORGANISM SNOMED Code(s): 47571091 (2) Abscess, gluteal, left Current Visit: Yes Status: Acute Code(s): L02.31 - CUTANEOUS ABSCESS OF BUTTOCK SNOMED Code(s): 69382270 (3) UTI (urinary tract infection) Current Visit: Yes Status: Acute Code(s): N39.0 - URINARY TRACT INFECTION, SITE NOT SPECIFIED SNOMED Code(s): 95672031 Plan: 1patient presented to hospital with sepsis source is multifactorial in this patient who did have a component of urinary tract infection likely from enteric gram-negative pathogen patient also noticed to have a infected pressure ulcer to the left gluteal area with associated cellulitis 2-we will obtain CT of the pelvis/gluteal area to make sure no evidence of any abscess that may need to be drained 3-local culture has been obtained to guide further antibiotic therapy 4-patient to continue with Rocephin 2 g daily will add vancomycin while waiting for the culture to finalize Family at the bedside multiple question concern answered We will follow on clinical condition and cultures to further adjust medication if needed Thank you for this consultation we will follow the patient along with you Dictation was produced using [employer] dictation software. please excuse any grammatical, word or spelling errors. Time with Patient: Greater than 30
--- NOTE | 2023-09-12 00:09 | P.GSCN ---
History of Present Illness Consult date: 09/12/23 Reason for Consult: Soft tissue infection of buttock History of present illness: Patient came to ED with altered mental status and was later found to have soft tissue infection of buttock by CT Past Medical History Additional Past Medical History / Comment(s): back pain History of Any Multi-Drug Resistant Organisms: None Reported Past Surgical History: Orthopedic Surgery Past Anesthesia/Blood Transfusion Reactions: No Reported Reaction Past Psychological History: No Psychological Hx Reported Smoking Status: Former smoker Past Alcohol Use History: None Reported Past Drug Use History: None Reported - Past Family History Mother Family Medical History: Cancer Additional Family Medical History / Comment(s): lung cancer Medications and Allergies Home Medications Medication Instructions Recorded Confirmed Type Alpha Lipoic Acid 600 mg PO DAILY 09/10/23 09/10/23 History Baclofen [Lioresal] 20 mg PO Q6H 09/10/23 09/10/23 History Buprenorphine [Butrans 5 MCG/HR] 1 patch TRANSDERM DIRECTED 09/10/23 09/10/23 History Famotidine [Pepcid] 20 mg PO DAILY 09/10/23 09/10/23 History Gabapentin 800 mg PO QID PRN 09/10/23 09/10/23 History Ibuprofen [Motrin] 800 mg PO Q8H PRN 09/10/23 09/10/23 History Mexiletine HCl 150 mg PO DAILY 09/10/23 09/10/23 History Mirtazapine 30 mg PO HS 09/10/23 09/10/23 History Pantoprazole [Protonix] 40 mg PO DAILY 09/10/23 09/10/23 History Sertraline [Zoloft] 100 mg PO DAILY 09/10/23 09/10/23 History buPROPion HCL [Wellbutrin SR] 200 mg PO DAILY 09/10/23 09/10/23 History Allergies Allergy/AdvReac Type Severity Reaction Status Date / Time celecoxib [From Celebrex] Allergy Unknown Verified 09/10/23 22:08 Childhood duloxetine [From Cymbalta] Allergy Itching Verified 09/10/23 22:08 omeprazole [From Prilosec] Allergy Unknown Verified 09/10/23 22:08 Childhood Surgical - Exam Vital Signs Temp Pulse Resp BP Pulse Ox 99.9 F H 90 18 76/47 96 09/10/23 20:10 09/10/23 20:10 09/10/23 20:10 09/10/23 20:10 09/10/23 20:10 - Integumentary other (Purplish discoloration and serous drainage from left and right buttock. Tender) Results - Labs 09/10/23 20:41 09/10/23 20:41 Assessment and Plan Assessment: Soft tissue infection with necrotic tissue of buttock. For debridement this AM. antibiotics started.
[2023-09-12] MEDS: LACTATED RINGERS 1,000 ML IV ONE ×2 (05:40→08:03)
[2023-09-12] MEDS: ONDANSETRON 4 MG/2 ML VIAL IVP ONE (05:53)
[2023-09-12] MEDS: DEXAMETHASONE SOD PHOSPHATE 4 MG/ML 1 ML VIAL IVP ONE (05:54)
--- NOTE | 2023-09-12 07:48 | P.OP ---
Date of Procedure: 09/12/23 Preoperative Diagnosis: Soft tissue infection of left gluteal area Postoperative Diagnosis: Necrotizing soft tissue infection of left gluteal area Procedure(s) Performed: Excisional debridement of skin and subcutaneous tissue, 16 cm x 12 cm x 4 cm (depth) Anesthesia: PROMISE Surgeon: Kiko Chaudhari Estimated Blood Loss (ml): 50 Pathology: other (skin and subcutaneous tissue) Condition: stable Disposition: PACU Indications for Procedure: The patient was admitted with sepsis due to a gluteal soft tissue infection. Debridement was recommended.The procedure was reviewed including prolong healing of open wounds and possible VAC use. Operative Findings: After the patient was given an adequate general endotracheal anesthetic, she was placed in the right lateral decubitus position. The area was prepped and draped in a sterile fashion. A draining sinus was present and the path was probed with a clamp. The skin and subcutaneous tissue overlying the path of the clamp was opened. The wound was probed and several channels containing granulation tissue and purulence were opened. Purulent fluid was weeping from the interstices of the necrotic subcutaneous tissue. The necrotic purulent tissue was excised. Gluteal muscle was exposed and it was healthy. Hemostasis was achieved with cautery. Surgicel powder and Tisseal were applied to the base of the wound. A betadine soaked gauze was placed in the cavity. Three sutures were placed to partially approximate the wound edges and help keep the packing in place. The iodine from the betadine reacted with the powder and left some black appearing spots. These were not present until the betadine dressing was applied. The wound was covered with fluffs, ABD pads and Ioban. The patient tolerated the procedure well and was taken to PACU in satisfactory condition. The cavity left by the excisional debridement was 16 cm x 12 cm x 4 cm (depth). The above narrative is the operative note Description of Procedure: The procedure is written up in the section operative findings. The operative findings were those of a necrotizing soft tissue infection of the left gluteal area involving the skin and subcutaneous tissue but not the muscle.
[2023-09-12] MEDS: MORPHINE SULFATE 4 MG/ML SYRINGE IVP PRN (08:42)
[2023-09-12] MEDS: VANCOMYCIN 1,250 MG in SODIUM CHLORIDE 0.9% 250 ML IVPB SCH ×2 (08:42→20:21)
[2023-09-12] MEDS: PANTOPRAZOLE 40 MG TABLET PO SCH (08:42)
[2023-09-12] MEDS: buPROPion SR 100 MG TABLET.ER PO SCH (08:43)
[2023-09-12] MEDS: MEXILETINE 150 MG CAP PO SCH (08:43)
[2023-09-12] MEDS ORDERED: NON FORMULARY DRUG (Alpha Lipoic Acid [Alpha Lipoic Acid] 600 MG Tablet) PO SCH (09:00)
--- NOTE | 2023-09-12 11:41 | P.PN ---
Subjective Progress Note Date: 09/12/23 Patient underwent debridement of decubitus ulcer. Patient appears to be resting In bed. Patient will continue local wound care. Objective - Vital Signs Vital signs: Vital Signs Temp 97.9 F 09/12/23 08:30 Pulse 78 09/12/23 10:00 Resp 17 09/12/23 08:30 BP 96/61 09/12/23 10:00 Pulse Ox 96 09/12/23 10:00 FiO2 Intake & Output 09/11/23 09/12/23 09/12/23 18:59 06:59 18:59 Intake Total 1240 450 Output Total 200 30 Balance 1040 420 Weight 72.575 kg 72.575 kg Intake: IV 600 450 Intake, IV Titration 440 Amount Sodium Chloride 0.9% 1, 390 000 ml @ 130 mls/hr IV . Q7H42M [facility] Rx#:[id number] cefTRIAXone 2 gm In 50 Sodium Chloride 0.9% 50 ml @ 100 mls/hr IVPB HS [facility] Rx#:[id number] Oral 200 Output: Urine 200 Estimated Blood Loss 30 Other: Voiding Method External Catheter External Catheter External Catheter # Voids 1 - Labs CBC & Chem 7: 09/10/23 20:41 09/10/23 20:41 Labs: Microbiology - Last 24 Hours (Table) 09/10/23 23:00 Urine Culture - Final Urine,Voided 09/10/23 23:55 Blood Culture - Preliminary Blood 09/10/23 23:40 Blood Culture - Preliminary Blood
[2023-09-12 12:04] LABS: Basophils % (A) 0 %; Eosinophils % (A) 0 %; HCT 33.6 % (34.0-46.0); HGB 10.5 gm/dL (11.4-16.0); Hypochromasia Slight; Lymphocytes # (A) 0.7 k/uL (1.0-4.8); Lymphocytes % (A) 9 %; MCH 31.1 pg (25.0-35.0); MCHC 31.3 g/dL (31.0-37.0); MCV 99.4 fL (80.0-100.0); Mean Platelet Volume 7.9; Monocytes # (A) 0.2 k/uL (0-1.0); Monocytes % (A) 3 %; Neutrophils # (A) 6.8 k/uL (1.3-7.7); Neutrophils % (A) 88 %; Platelet Count 205 k/uL (150-450); RBC 3.38 m/uL (3.80-5.40); RDW 13.8 % (11.5-15.5); WBC 7.7 k/uL (3.8-10.6)
[2023-09-12 12:16] LABS: ALT 14 U/L (4-34); AST 20 U/L (14-36); African American GFR (CKD) >90 (>60 ml/min/1.73 sqM); Albumin 2.4 g/dL (3.5-5.0); Alkaline Phosphatase 76 U/L (38-126); Anion Gap 9 mmol/L; Blood Urea Nitrogen 14 mg/dL (7-17); Calcium 8.1 mg/dL (8.4-10.2); Carbon Dioxide 16 mmol/L (22-30); Chloride 117 mmol/L (98-107); Globulin 2.5 g/dL; Glucose 134 mg/dL (74-99); Non-African American GFR(CKD) >90 (>60 ml/min/1.73 sqM); Potassium 3.8 mmol/L (3.5-5.1); Sodium 142 mmol/L (137-145); Total Bilirubin 0.5 mg/dL (0.2-1.3); Total Protein 4.9 g/dL (6.3-8.2)
[2023-09-12] MEDS: MULTIVITAMINS, THERA 1 EACH TAB PO SCH (12:27)
[2023-09-12] MEDS: FOLIC ACID 1 MG TAB PO SCH (12:27)
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
--- NOTE | 2023-09-12 13:17 | US ---
EXAMINATION TYPE: US carotid duplex BILAT DATE OF EXAM: 09/12/2023 COMPARISON: NONE CLINICAL INDICATION: Female, 63 years old with history of Confusion,; no h/o stroke, confusion, brain fog TECHNIQUE: Carotid duplex ultrasound examination. Indirect Doppler criteria was utilized. FINDINGS: EXAM MEASUREMENTS: RIGHT: Peak Systolic Velocity (PSV) cm/sec ----- Right CCA: 125 ----- Right ICA: 93 ----- Right ECA: 107 ICA/CCA ratio: 0.7 RIGHT: End Diastole cm/sec ----- Right CCA: 68.9 ----- Right ICA: 25.8 ----- Right ECA: 9.7 LEFT: Peak Systolic Velocity (PSV) cm/sec ----- Left CCA: 112 ----- Left ICA: 115 ----- Left ECA: 145 ICA/CCA ratio: 1.0 LEFT: End Diastole cm/sec ----- Left CCA: 28.8 ----- Left ICA: 24.2 ----- Left ECA: 18.8 VERTEBRALS (direction of flow): Right Vertebral: Antegrade Left Vertebral: Antegrade Rhythm: Normal LABORATORY ENGINEER NOTES: Mild homogeneous plaque with no stenosis seen IMPRESSION: Mild plaque formation in the carotid bifurcations but no significant stenosis based on peak systolic velocities and ratios. Criteria for Assigning % of Stenosis / Diameter reduction (Estimation based on the indirect measurements of the internal carotid artery velocities (ICA PSV). 1. Normal (no stenosis)=ICA PSV < 125 cm/s: ratio < 2.0: ICA EDV<40 cm/s. 2. Less than 50% stenosis=ICA PSV < 125 cm/s: ratio < 2.0: ICA EDV<40 cm/s. 3. 50 to 69% stenosis=ICA PSV of 125 to 230 cm/s: ration 2.0 ? 4.0: ICA EDV 40-100 cm/s. 4. Greater than 70% stenosis to near occlusion= ICA PSV > 230 cm/s: ratio > 4.0: ICA EDV > 100 cm/s. 5. Near occlusion= ICA PSV velocities may be low or undetectable: variable ratio and ICA EDV. 6. Total occlusion=unable to detect flow.
--- NOTE | 2023-09-12 13:19 | P.PN ---
Subjective Progress Note Date: 09/12/23 Principal diagnosis: Reason for follow-up is sepsis and left gluteal necrotizing infection Patient is a 63-year female with a past medical history significant for chronic back pain depression was brought into the ER for evaluation of mental status changes, patient was noticed to be febrile elevated white count did have a positive UA and there was also concerning for cellulitis/abscess to the left gluteal area CT was suspicious for possible necrotizing infection Gen eral surgery to the patient to the OR and is s/p excisional debridement of the skin and subcutaneous tissue. On today's evaluation that is 09/12/2023,the patient did have resolution of the fever and is afebrile today, patient is on room air not requiring supplemental oxygen and denies any shortness of breath no chest pain or cough.Patient denies having any nausea or vomiting, no abdominal pain and no diarrhea has been reported, pain to the left lower leg has decreased in intensity. The patient white count normalized to 7.7, creatinine 0.71 cultures are pending Objective - Vital Signs Vital signs: Vital Signs Temp 97.9 F 09/12/23 08:30 Pulse 78 09/12/23 10:00 Resp 17 09/12/23 08:30 BP 96/61 09/12/23 10:00 Pulse Ox 96 09/12/23 10:00 FiO2 Intake & Output 09/11/23 09/12/23 09/12/23 18:59 06:59 18:59 Intake Total 1240 450 Output Total 200 30 Balance 1040 420 Weight 72.575 kg 72.575 kg Intake: IV 600 450 Intake, IV Titration 440 Amount Sodium Chloride 0.9% 1, 390 000 ml @ 130 mls/hr IV . Q7H42M [facility] Rx#:[id number] cefTRIAXone 2 gm In 50 Sodium Chloride 0.9% 50 ml @ 100 mls/hr IVPB HS [facility] Rx#:[id number] Oral 200 Output: Urine 200 Estimated Blood Loss 30 Other: Voiding Method External Catheter External Catheter External Catheter # Voids 1 - Exam GENERAL DESCRIPTION: Middle-aged female lying in bed in no distress RESPIRATORY SYSTEM: Unlabored breathing , decreased breath sounds at bases HEART: S1 S2 regular rate and rhythm , ABDOMEN: Soft , no tenderness EXTREMITIES: No edema feet - Labs CBC & Chem 7: 09/12/23 11:44 09/12/23 11:44 Labs: Microbiology - Last 24 Hours (Table) 09/10/23 23:00 Urine Culture - Final Urine,Voided 09/10/23 23:55 Blood Culture - Preliminary Blood 09/10/23 23:40 Blood Culture - Preliminary Blood Assessment and Plan (1) Sepsis Current Visit: Yes Status: Acute Code(s): A41.9 - SEPSIS, UNSPECIFIED ORGANISM SNOMED Code(s): 67299659 (2) Abscess, gluteal, left Current Visit: Yes Status: Acute Code(s): L02.31 - CUTANEOUS ABSCESS OF BUTTOCK SNOMED Code(s): 48129314 (3) UTI (urinary tract infection) Current Visit: Yes Status: Acute Code(s): N39.0 - URINARY TRACT INFECTION, SITE NOT SPECIFIED SNOMED Code(s): 11082141 Plan: 1patient presented to hospital with sepsis source is multifactorial in this patient who did have a component of urinary tract infection however patient also noticed to have a infected pressure ulcer to the left gluteal area with associated cellulitis 2-patient did have CT of the pelvis/gluteal area concerning for necrotizing infection in this patient was status post surgical drainage and cultures are currently pending 3-patient to continue with Rocephin 2 g daily and vancomycin while waiting for the culture to finalize Daughter at the bedside multiple question concern answered Dictation was produced using [employer] dictation software. please excuse any grammatical, word or spelling errors. Time with Patient: Less than 30
[2023-09-12] MEDS: Acetaminophen-Codeine 300-30mg TAB PO PRN (21:48)
--- NOTE | 2023-09-13 00:04 | PN ---
PROGRESS NOTE DATE OF SERVICE: 09/12/2023 SUBJECTIVE: This is a 63-year-old woman, who was admitted with change in mental status, possible UTI, as well as also had significant sacral decubitus ulcer stage IV and significant surgery has been done yesterday with debridement. The patient is also having neurological followup. The cultures are negative so far. Multiple consultants are following the patient closely. PAST MEDICAL HISTORY: Reviewed. REVIEW OF SYSTEMS: Could not be taken as the patient is confused. CURRENT MEDICATIONS: Reviewed include Rocephin, doses and rest of medications noted. PHYSICAL EXAMINATION: VITAL SIGNS: Pulse is 75, blood pressure 110/87, respirations 17. CHEST: Clear to auscultation. CARDIOVASCULAR: S1, S2. ABDOMEN: Soft. NERVOUS SYSTEM: Diffusely weak. SKIN: Left sacral decubitus present. LABORATORY DATA: Reviewed. ASSESSMENT: 1. Acute urinary tract infection with severe sepsis. 2. Left decubitus ulcer, sacral area, grade 4, present on admission with status post incision and drainage. 3. Increased creatinine with acute renal failure. 4. Hyponatremia. 5. Change in mental status, acute metabolic encephalopathy. 6. History of pain. 7. Gait dysfunction, history of back pain. RECOMMENDATIONS: I recommend to continue current management and treatment. Otherwise, continue DVT prophylaxis. Broad-spectrum IV antibiotics. Obtain the cultures. Cut down the IV fluids. Monitor labs closely. Prognosis guarded. Further recommendations to follow. MMODL / IJN: [id number] /
[2023-09-13 08:34] LABS: Basophils # (A) 0.03 X 10*3/uL (0.00-0.10); Basophils % (A) 0.3 %; Eosinophils # (A) 0.04 X 10*3/uL (0.04-0.35); Eosinophils % (A) 0.4 %; HCT 29.5 % (37.2-46.3); HGB 9.3 g/dL (12.0-15.0); Lymphocytes # (A) 1.97 X 10*3/uL (0.90-5.00); Lymphocytes % (A) 17.8 %; MCH 31.3 pg (27.0-32.0); MCHC 31.5 g/dL (32.0-37.0); MCV 99.3 FL (80.0-97.0); Mean Platelet Volume 11.4 FL (9.5-12.2); Monocytes # (A) 0.81 X 10*3/uL (0.20-1.00); Monocytes % (A) 7.3 %; NRBC Per 100 WBC 0 X 10*3/uL (0.00-0.01); Neutrophils # (A) 8.13 X 10*3/uL (1.80-7.70); Neutrophils % (A) 73.2 %; Platelet Count 235 X 10*3/uL (140-440); RBC 2.97 X 10*6/uL (4.10-5.20); RDW 14.6 % (11.5-14.5); WBC 11.09 X 10*3/uL (4.50-10.00)
[2023-09-13 08:48] LABS: BUN/Creat Ratio 21.14 Ratio (12.00-20.00); Blood Urea Nitrogen 14.8 mg/dL (9.0-27.0); Calcium 8.2 mg/dL (8.7-10.3); Carbon Dioxide 20.1 mmol/L (21.6-31.8); Chloride 114 mmol/L (96-109); Glucose 100 mg/dL (70-110); Potassium 3.5 mmol/L (3.5-5.5); Sodium 142 mmol/L (135-145)
--- NOTE | 2023-09-13 11:54 | P.PN ---
Subjective Progress Note Date: 09/13/23 Principal diagnosis: Reason for follow-up is sepsis and left gluteal necrotizing infection Patient is a 63-year female with a past medical history significant for chronic back pain depression was brought into the ER for evaluation of mental status changes, patient was noticed to be febrile elevated white count did have a positive UA and there was also concerning for cellulitis/abscess to the left gluteal area CT was suspicious for possible necrotizing infection Gen eral surgery to the patient to the OR and is s/p excisional debridement of the skin and subcutaneous tissue. On today's evaluation that is 09/13/2023, the patient continues to be afebrile, the patient is on room air and breathing comfortably, the Pt denies having any chest pain or cough, the patient denies having any abdominal pain no vomiting or any diarrhea has been reported by the nursing staff, pain to the left gluteal area slightly decreased in intensity. White count is 11.09, creatinine 0.7 blood culture growing presumptive MRSA Objective - Vital Signs Vital signs: Vital Signs Temp 97.5 F L 09/13/23 07:44 Pulse 73 09/13/23 07:44 Resp 17 09/13/23 07:44 BP 122/74 09/13/23 07:44 Pulse Ox 93 L 09/13/23 07:44 FiO2 Intake & Output 09/12/23 09/13/23 09/13/23 18:59 06:59 18:59 Intake Total 1360 475 Output Total 730 300 Balance 630 175 Weight 72.575 kg Intake: IV 450 Intake, IV Titration 910 475 Amount Sodium Chloride 0.9% 1, 910 225 000 ml @ 75 mls/hr IV . [id number] [facility] Rx#:[id number] Vancomycin 1,250 mg In 250 Sodium Chloride 0.9% 250 ml @ 125 mls/hr IVPB Q12H [facility] Rx#:[id number] Output: Urine 700 300 Estimated Blood Loss 30 Other: Voiding Method External Catheter External Catheter # Voids 0 - Exam GENERAL DESCRIPTION: Middle-aged female lying in bed in no distress RESPIRATORY SYSTEM: Unlabored breathing , decreased breath sounds at bases HEART: S1 S2 regular rate and rhythm , ABDOMEN: Soft , no tenderness EXTREMITIES: No edema feet - Labs CBC & Chem 7: 09/13/23 05:51 09/13/23 05:51 Labs: Abnormal Lab Results - Last 24 Hours (Table) 09/12/23 09/12/23 09/13/23 Range/Units 11:44 11:44 05:51 WBC 11.09 H (4.50-10.00) X 10*3/uL RBC 3.38 L 2.97 L (3.80-5.40) m/uL Hgb 10.5 L 9.3 L (11.4-16.0) gm/dL Hct 33.6 L 29.5 L (34.0-46.0) % MCV 99.3 H (80.0-97.0) FL MCHC 31.5 L (32.0-37.0) g/dL RDW 14.6 H (11.5-14.5) % Immature Gran # 0.11 H (0.00-0.04) X 10*3/uL Neutrophils # 8.13 H (1.80-7.70) X 10*3/uL Lymphocytes # 0.7 L (1.0-4.8) k/uL Chloride 117 H (98-107) mmol/L Carbon Dioxide 16 L (22-30) mmol/L BUN/Creatinine Ratio (12.00-20.00) Ratio Glucose 134 H (74-99) mg/dL Calcium 8.1 L (8.4-10.2) mg/dL Total Protein 4.9 L (6.3-8.2) g/dL Albumin 2.4 L (3.5-5.0) g/dL 09/13/23 Range/Units 05:51 WBC (4.50-10.00) X 10*3/uL RBC (3.80-5.40) m/uL Hgb (11.4-16.0) gm/dL Hct (34.0-46.0) % MCV (80.0-97.0) FL MCHC (32.0-37.0) g/dL RDW (11.5-14.5) % Immature Gran # (0.00-0.04) X 10*3/uL Neutrophils # (1.80-7.70) X 10*3/uL Lymphocytes # (1.0-4.8) k/uL Chloride 114 H (98-107) mmol/L Carbon Dioxide 20.1 L (22-30) mmol/L BUN/Creatinine Ratio 21.14 H (12.00-20.00) Ratio Glucose (74-99) mg/dL Calcium 8.2 L (8.4-10.2) mg/dL Total Protein (6.3-8.2) g/dL Albumin (3.5-5.0) g/dL Microbiology - Last 24 Hours (Table) 09/12/23 07:05 Gram Stain - Preliminary Buttock Wound Culture - Preliminary Presumptive MRSA 09/11/23 16:28 Gram Stain - Preliminary Buttock Wound Culture - Preliminary Presumptive MRSA 09/10/23 23:55 Blood Culture - Preliminary Blood 09/10/23 23:40 Blood Culture - Preliminary Blood 09/10/23 23:00 Urine Culture - Final Urine,Voided Assessment and Plan (1) Sepsis Current Visit: Yes Status: Acute Code(s): A41.9 - SEPSIS, UNSPECIFIED ORGANISM SNOMED Code(s): 55357564 (2) Abscess, gluteal, left Current Visit: Yes Status: Acute Code(s): L02.31 - CUTANEOUS ABSCESS OF BUTTOCK SNOMED Code(s): 78460107 (3) UTI (urinary tract infection) Current Visit: Yes Status: Acute Code(s): N39.0 - URINARY TRACT INFECTION, SITE NOT SPECIFIED SNOMED Code(s): 02672225 Plan: 1patient presented to hospital with sepsis source is multifactorial in this patient who did have a component of urinary tract infection however patient also noticed to have a infected pressure ulcer to the left gluteal area with associated cellulitis 2-patient did have CT of the pelvis/gluteal area concerning for necrotizing infection in this patient was status post surgical drainage and cultures are currently growing presumptive MRSA 3-patient to continue with Rocephin 2 g daily and vancomycin while waiting for the culture to finalize, will likely need a PICC line and outpatient IV antibiotics Dictation was produced using [employer] dictation software. please excuse any gram matical, word or spelling errors. Time with Patient: Less than 30
[2023-09-13 12:05] VITALS: BMI 26.6
[2023-09-13] MEDS: SERTRALINE 50 MG TAB PO SCH (12:52)
--- NOTE | 2023-09-13 14:54 | P.PN ---
Subjective Progress Note Date: 09/13/23 CHIEF COMPLAINT: Sacral decubitus ulcer HISTORY OF PRESENT ILLNESS: Patient is status post debridement postop day #1. Pain controlled. Culture growing presumptive MRSA. Vitals stable. Afebrile. WBC is 11 Hgb 9.3 PHYSICAL EXAM: VITAL SIGNS: Reviewed. GENERAL: Well-developed in no acute distress. ABDOMEN: Soft. Nondistended. Nontender. NEUROLOGIC: Alert and oriented. Cranial nerves II through XII grossly intact. Skin: Sacral decub dressing intact ASSESSMENT: 1. Necrotizing soft tissue infection of the left gluteal area status post incision and debridement PLAN: -Consult wound care service for wound VAC placement -Continue antibiotics per ID service -Continue pain management and supportive care Physician Learning Support Teacher note has been reviewed by physician. Signing provider agrees with the documented findings, assessment, and plan of care. Objective - Vital Signs Vital signs: Vital Signs Temp 97.6 F 09/13/23 12:30 Pulse 77 09/13/23 12:30 Resp 16 09/13/23 12:30 BP 133/68 09/13/23 12:30 Pulse Ox 93 L 09/13/23 12:30 FiO2 Intake & Output 09/12/23 09/13/23 09/13/23 18:59 06:59 18:59 Intake Total 1360 475 Output Total 730 300 Balance 630 175 Weight 72.575 kg 72.575 kg Intake: IV 450 Intake, IV Titration 910 475 Amount Sodium Chloride 0.9% 1, 910 225 000 ml @ 75 mls/hr IV . [id number] [facility] Rx#:[id number] Vancomycin 1,250 mg In 250 Sodium Chloride 0.9% 250 ml @ 125 mls/hr IVPB Q12H [facility] Rx#:[id number] Output: Urine 700 300 Estimated Blood Loss 30 Other: Voiding Method External Catheter External Catheter External Catheter # Voids 0 - Labs CBC & Chem 7: 09/13/23 05:51 09/13/23 05:51 Labs: Abnormal Lab Results - Last 24 Hours (Table) 09/13/23 09/13/23 Range/Units 05:51 05:51 WBC 11.09 H (4.50-10.00) X 10*3/uL RBC 2.97 L (4.10-5.20) X 10*6/uL Hgb 9.3 L (12.0-15.0) g/dL Hct 29.5 L (37.2-46.3) % MCV 99.3 H (80.0-97.0) FL MCHC 31.5 L (32.0-37.0) g/dL RDW 14.6 H (11.5-14.5) % Immature Gran # 0.11 H (0.00-0.04) X 10*3/uL Neutrophils # 8.13 H (1.80-7.70) X 10*3/uL Chloride 114 H (96-109) mmol/L Carbon Dioxide 20.1 L (21.6-31.8) mmol/L BUN/Creatinine Ratio 21.14 H (12.00-20.00) Ratio Calcium 8.2 L (8.7-10.3) mg/dL Microbiology - Last 24 Hours (Table) 09/12/23 07:05 Gram Stain - Preliminary Buttock Wound Culture - Preliminary Presumptive MRSA 09/11/23 16:28 Gram Stain - Preliminary Buttock Wound Culture - Preliminary Presumptive MRSA 09/10/23 23:55 Blood Culture - Preliminary Blood 09/10/23 23:40 Blood Culture - Preliminary Blood 09/10/23 23:00 Urine Culture - Final Urine,Voided
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
[2023-09-13] MEDS: MIRTAZAPINE 15 MG TAB PO SCH (20:43)
[2023-09-13] MEDS: CYANOCOBALAMIN 1,000 MCG/ML 1 ML VIAL IM ONE (20:43)
--- NOTE | 2023-09-13 22:10 | PN ---
PROGRESS NOTE DATE OF SERVICE: 09/13/2023 SUBJECTIVE: This is a 63-year-old woman, who was admitted with acute UTI with severe sepsis, also had left decubitus ulcer. The patient continues to be confused. No chest pain. No palpitation. Cultures are showing presumptive MRSA. OBJECTIVE: VITAL SIGNS: Pulse is 73, blood pressure 120/74, respirations 17. CHEST: Clear to auscultation. CARDIOVASCULAR: S1, S2. ABDOMEN: Soft. SKIN: Significant wound present. LABORATORY DATA: Noted. ASSESSMENT: 1. Acute urinary tract infection with severe sepsis present on admission. 2. Left decubitus ulcer, gluteal area, stage IV, present on admission, status post incision and drainage with Methicillin-resistant Staphylococcus aureus. 3. Increased creatinine with acute renal failure present on admission. 4. Hyponatremia. 5. Change in mental status, acute metabolic encephalopathy. 6. History of pain. 7. Gait dysfunction. 8. History of back pain. RECOMMENDATIONS: Recommend to continue current management and continue symptomatic treatment, otherwise continue with broad-spectrum IV antibiotics and monitor potassium closely. IV Vancomycin, wound VAC. Surgical evaluation. Guarded prognosis. Further recommendations to follow. MMODL / IJN: [id number] /
[2023-09-14 08:05] LABS: African American GFR (CKD) >90 (>60 ml/min/1.73 sqM); Anion Gap 5 mmol/L; Blood Urea Nitrogen 10 mg/dL (7-17); Calcium 8.1 mg/dL (8.4-10.2); Carbon Dioxide 18 mmol/L (22-30); Chloride 117 mmol/L (98-107); Glucose 91 mg/dL (74-99); Non-African American GFR(CKD) >90 (>60 ml/min/1.73 sqM); Potassium 3.2 mmol/L (3.5-5.1); Sodium 140 mmol/L (137-145)
[2023-09-14] MEDS ORDERED: Potassium Replacement Protocol 1 EACH MISC MISCELLANE PRN (09:17)
[2023-09-14] MEDS: FAMOTIDINE 20 MG TAB PO SCH (10:00)
[2023-09-14] MEDS: CYANOCOBALAMIN 500 MCG TAB PO SCH (10:00)
--- NOTE | 2023-09-14 10:13 | P.CONS ---
History of Present Illness - Reason for Consult Consult date: 09/14/23 wound vac - History of Present Illness This is a 63-year-old patient who is a poor historian being seen by the wound care center on [address] for nonhealing pressure ulcer of the left buttocks. Patient underwent a surgical debridement yesterday at this time it is packed with Kerlix. Ulceration measures approximately 16 x 12 x 4. Ulceration shows granulation and slough. Sutures were applied to the edge to assist in keeping packing in place. Patient's past medical history significant for back pain and MRSA she currently vapes. Denies diabetes. Review of systems: Unable to obtain due to patient's mental status Physical exam: General Appearance: Alert, cooperative, no distress, appears stated age. Skin: See HPI all other Skin color, texture, tugor normal, no rashes or lesions. Neurologic: Alert oriented x3 Assessment: 1. Stage III pressure ulcer left buttocks Plan: 1. Apply negative pressure wound VAC at 125 mmHg with black foam changing Wednesday. Patient would benefit from advanced wound care and wound care setting. We have happy to see her upon discharge. Thank you for the consultation any questions please contact the wound care center DNP note has been reviewed and discussed with Dr. Gong and the impression and plan of care has been directed as dictated. Past Medical History Additional Past Medical History / Comment(s): back pain History of Any Multi-Drug Resistant Organisms: MRSA Year Discovered:: 09/13/23 MDRO Source:: left buttock Past Surgical History: Orthopedic Surgery Past Anesthesia/Blood Transfusion Reactions: No Reported Reaction Past Psychological History: No Psychological Hx Reported Smoking Status: Former smoker Past Alcohol Use History: None Reported Past Drug Use History: None Reported - Past Family History Mother Family Medical History: Cancer Additional Family Medical History / Comment(s): lung cancer Medications and Allergies Home Medications Medication Instructions Recorded Confirmed Type Alpha Lipoic Acid 600 mg PO DAILY 09/10/23 09/10/23 History Baclofen [Lioresal] 20 mg PO Q6H 09/10/23 09/10/23 History Buprenorphine [Butrans 5 MCG/HR] 1 patch TRANSDERM DIRECTED 09/10/23 09/10/23 History Famotidine [Pepcid] 20 mg PO DAILY 09/10/23 09/10/23 History Gabapentin 800 mg PO QID PRN 09/10/23 09/10/23 History Ibuprofen [Motrin] 800 mg PO Q8H PRN 09/10/23 09/10/23 History Mexiletine HCl 150 mg PO DAILY 09/10/23 09/10/23 History Mirtazapine 30 mg PO HS 09/10/23 09/10/23 History Pantoprazole [Protonix] 40 mg PO DAILY 09/10/23 09/10/23 History Sertraline [Zoloft] 100 mg PO DAILY 09/10/23 09/10/23 History buPROPion HCL [Wellbutrin SR] 200 mg PO DAILY 09/10/23 09/10/23 History Allergies Allergy/AdvReac Type Severity Reaction Status Date / Time celecoxib [From Celebrex] Allergy Unknown Verified 09/10/23 22:08 Childhood duloxetine [From Cymbalta] Allergy Itching Verified 09/10/23 22:08 omeprazole [From Prilosec] Allergy Unknown Verified 09/10/23 22:08 Childhood Physical Exam Vitals: Vital Signs Temp Pulse Resp BP Pulse Ox 09/14/23 08:00 98.5 F 83 16 112/72 92 L 09/14/23 01:56 98.0 F 89 18 146/87 90 L 09/13/23 19:51 98.4 F 83 18 105/71 93 L 09/13/23 12:30 97.6 F 77 16 133/68 93 L Intake and Output 09/13/23 09/14/23 09/14/23 22:59 06:59 14:59 Intake Total 240 Output Total 300 500 300 Balance -60 -500 -300 Intake: Oral 240 Output: Urine 300 500 300 Other: Voiding Method External Catheter Results CBC & Chem 7: 09/13/23 05:51 09/14/23 07:37 Labs: Abnormal Lab Results - Last 24 Hours (Table) 09/14/23 Range/Units 07:37 Potassium 3.2 L (3.5-5.1) mmol/L Chloride 117 H (98-107) mmol/L Carbon Dioxide 18 L (22-30) mmol/L Calcium 8.1 L (8.4-10.2) mg/dL Microbiology - Last 24 Hours (Table) 09/12/23 07:05 Gram Stain - Final Buttock Wound Culture - Final Methicillin resist S. aureus 09/10/23 23:55 Blood Culture - Preliminary Blood 09/10/23 23:40 Blood Culture - Preliminary Blood 09/11/23 16:28 Gram Stain - Final Buttock Wound Culture - Final Methicillin resist S. aureus 09/11/23 16:28 Anaerobic Culture - Preliminary Buttock Assessment and Plan (1) Pressure ulcer of left buttock, stage 3 Current Visit: Yes Status: Acute Code(s): L89.323 - PRESSURE ULCER OF LEFT BUTTOCK, STAGE 3 SNOMED Code(s): 47912642049107
[2023-09-14] MEDS: VANCOMYCIN TROUGH DUE 1 EACH MISC MISCELLANE ONE (10:46)
[2023-09-14 11:47] LABS: Basophils # (A) 0.04 X 10*3/uL (0.00-0.10); Basophils % (A) 0.4 %; HCT 29.7 % (37.2-46.3); HGB 9.7 g/dL (12.0-15.0); Lymphocytes # (A) 2.25 X 10*3/uL (0.90-5.00); Lymphocytes % (A) 22.8 %; MCH 31.5 pg (27.0-32.0); MCHC 32.7 g/dL (32.0-37.0); MCV 96.4 FL (80.0-97.0); Mean Platelet Volume 11.1 FL (9.5-12.2); Monocytes # (A) 1.03 X 10*3/uL (0.20-1.00); Monocytes % (A) 10.4 %; NRBC Per 100 WBC 0 X 10*3/uL (0.00-0.01); Neutrophils # (A) 6.06 X 10*3/uL (1.80-7.70); Neutrophils % (A) 61.4 %; Platelet Count 273 X 10*3/uL (140-440); RBC 3.08 X 10*6/uL (4.10-5.20); RDW 14.3 % (11.5-14.5); WBC 9.88 X 10*3/uL (4.50-10.00)
[2023-09-14] MEDS ORDERED: HYDROcodone/APAP 5-325MG 1 EACH TAB PO PRN (12:17)
[2023-09-14] MEDS: NALOXONE 0.4 MG/ML 1 ML VIAL IVP STA (12:25)
[2023-09-14] MEDS: VANCOMYCIN 1,250 MG in SODIUM CHLORIDE 0.9% 250 ML IVPB SCH (12:51)
--- NOTE | 2023-09-14 12:56 | P.PN ---
Subjective Progress Note Date: 09/14/23 Principal diagnosis: Reason for follow-up is sepsis and left gluteal necrotizing infection Patient is a 63-year female with a past medical history significant for chronic back pain depression was brought into the ER for evaluation of mental status changes, patient was noticed to be febrile elevated white count did have a positive UA and there was also concerning for cellulitis/abscess to the left gluteal area CT was suspicious for possible necrotizing infection Gen eral surgery to the patient to the OR and is s/p excisional debridement of the skin and subcutaneous tissue. On today's evaluation that is 09/14/2023, Patient is afebrile , patient is currently on 2 L nasal cannula oxygen and denies having any shortness of breath, the patient denies any chest pain or cough, the patient denies any nausea vomiting did not have any abdominal pain and no diarrhea, the patient pain to the left gluteal area is currently controlled. Patient white count 9.18, creatinine 0.69 left gluteal culture with MRSA Objective - Vital Signs Vital signs: Vital Signs Temp 98.6 F 09/14/23 12:08 Pulse 102 H 09/14/23 12:08 Resp 22 09/14/23 12:25 BP 111/72 09/14/23 12:08 Pulse Ox 89 L 09/14/23 12:08 FiO2 Intake & Output 09/13/23 09/14/23 09/14/23 18:59 06:59 18:59 Intake Total 240 Output Total 300 500 300 Balance -300 -260 -300 Weight 72.575 kg Intake: Oral 240 Output: Urine 300 500 300 Other: Voiding Method External Catheter External Catheter - Exam GENERAL DESCRIPTION: Middle-aged female lying in bed in no distress RESPIRATORY SYSTEM: Unlabored breathing , decreased breath sounds at bases HEART: S1 S2 regular rate and rhythm , ABDOMEN: Soft , no tenderness EXTREMITIES: No edema feet - Labs CBC & Chem 7: 09/14/23 07:38 09/14/23 07:37 Labs: Abnormal Lab Results - Last 24 Hours (Table) 09/14/23 09/14/23 Range/Units 07:37 07:38 RBC 3.08 L (4.10-5.20) X 10*6/uL Hgb 9.7 L (12.0-15.0) g/dL Hct 29.7 L (37.2-46.3) % Immature Gran # 0.10 H (0.00-0.04) X 10*3/uL Monocytes # 1.03 H (0.20-1.00) X 10*3/uL Eosinophils # 0.40 H (0.04-0.35) X 10*3/uL Potassium 3.2 L (3.5-5.1) mmol/L Chloride 117 H (98-107) mmol/L Carbon Dioxide 18 L (22-30) mmol/L Calcium 8.1 L (8.4-10.2) mg/dL Microbiology - Last 24 Hours (Table) 09/12/23 07:05 Anaerobic Culture - Preliminary Buttock 09/12/23 07:05 Gram Stain - Final Buttock Wound Culture - Final Methicillin resist S. aureus 09/10/23 23:55 Blood Culture - Preliminary Blood 09/10/23 23:40 Blood Culture - Preliminary Blood 09/11/23 16:28 Gram Stain - Final Buttock Wound Culture - Final Methicillin resist S. aureus 09/11/23 16:28 Anaerobic Culture - Preliminary Buttock Assessment and Plan (1) Sepsis Current Visit: Yes Status: Acute Code(s): A41.9 - SEPSIS, UNSPECIFIED ORGANISM SNOMED Code(s): 97144410 (2) Abscess, gluteal, left Current Visit: Yes Status: Acute Code(s): L02.31 - CUTANEOUS ABSCESS OF BU TTOCK SNOMED Code(s): 38576603 (3) UTI (urinary tract infection) Current Visit: Yes Status: Acute Code(s): N39.0 - URINARY TRACT INFECTION, SITE NOT SPECIFIED SNOMED Code(s): 68765723 Plan: 1patient presented to hospital with sepsis source is multifactorial in this patient who did have a component of urinary tract infection however patient also noticed to have a infected pressure ulcer to the left gluteal area with associated cellulitis 2-patient did have CT of the pelvis/gluteal area concerning for necrotizing i nfection in this patient was status post surgical drainage and cultures are currently growing presumptive MRSA 3-patient to continue with vancomycin discontinue Rocephin, the patient will need need a PICC line and outpatient IV antibiotics, local wound care to continue per the wound care suggesting wound VAC Dictation was produced using [employer] dictation software. please excuse any grammatical, word or spelling errors. Time with Patient: Less than 30
--- NOTE | 2023-09-14 13:07 | XR ---
EXAMINATION TYPE: XR chest 1V portable DATE OF EXAM: 09/14/2023 Comparison: 09/10/2023 Clinical History: 63-year-old female shortness of breath Findings: Heart normal size. Aorta and pulmonary vasculature within normal limits. Interstitial density. More f ocal right basilar airspace opacity. No pleural effusion. Impression: Increased interstitial density. Focal airspace disease right base. Correlate for possible etiologies such as fluid overload and either developing patchy pulmonary edema versus pneumonia.
--- NOTE | 2023-09-14 13:09 | P.PN ---
Subjective Progress Note Date: 09/14/23 CHIEF COMPLAINT: Sacral decubitus ulcer HISTORY OF PRESENT ILLNESS: Patient is status post debridement postop day #2. Pain controlled. Culture growing MRSA. Afebrile. Mildly tachycardic. WBC normal at 9.88 PHYSICAL EXAM: VITAL SIGNS: Reviewed. GENERAL: Well-developed in no acute distress. ABDOMEN: Soft. Nondistended. Nontender. NEUROLOGIC: Alert and oriented. Cranial nerves II through XII grossly intact. Skin: Sacral decub dressing intact ASSESSMENT: 1. Necrotizing soft tissue infection of the left gluteal area status post incision and debridement PLAN: -Wound VAC ordered per wound care service -Continue antibiotics per ID service -Continue pain management and supportive care Physician Testing Manager note has been reviewed by physician. Signing provider agrees with the documented findings, assessment, and plan of care. Objective - Vital Signs Vital signs: Vital Signs Temp 98.9 F 09/14/23 12:57 Pulse 110 H 09/14/23 12:57 Resp 22 09/14/23 12:57 BP 123/77 09/14/23 12:57 Pulse Ox 94 L 09/14/23 12:57 FiO2 Intake & Output 09/13/23 09/14/23 09/14/23 18:59 06:59 18:59 Intake Total 240 Output Total 300 500 300 Balance -300 -260 -300 Weight 72.575 kg Intake: Oral 240 Output: Urine 300 500 300 Other: Voiding Method External Catheter External Catheter - Labs CBC & Chem 7: 09/14/23 07:38 09/14/23 07:37 Labs: Abnormal Lab Results - Last 24 Hours (Table) 09/14/23 09/14/23 Range/Units 07:37 07:38 RBC 3.08 L (4.10-5.20) X 10*6/uL Hgb 9.7 L (12.0-15.0) g/dL Hct 29.7 L (37.2-46.3) % Immature Gran # 0.10 H (0.00-0.04) X 10*3/uL Monocytes # 1.03 H (0.20-1.00) X 10*3/uL Eosinophils # 0.40 H (0.04-0.35) X 10*3/uL Potassium 3.2 L (3.5-5.1) mmol/L Chloride 117 H (98-107) mmol/L Carbon Dioxide 18 L (22-30) mmol/L Calcium 8.1 L (8.4-10.2) mg/dL Microbiology - Last 24 Hours (Table) 09/12/23 07:05 Anaerobic Culture - Preliminary Buttock 09/12/23 07:05 Gram Stain - Final Buttock Wound Culture - Final Methicillin resist S. aureus 09/10/23 23:55 Blood Culture - Preliminary Blood 09/10/23 23:40 Blood Culture - Preliminary Blood 09/11/23 16:28 Gram Stain - Final Buttock Wound Culture - Final Methicillin resist S. aureus 09/11/23 16:28 Anaerobic Culture - Preliminary Buttock
[2023-09-14] MEDS: POTASSIUM CHLORIDE ER 20 MEQ TAB.ER PO SCH (13:12)
[2023-09-14] MEDS ORDERED: ACETAMINOPHEN TAB 325 MG TAB PO PRN (14:08)
--- NOTE | 2023-09-14 14:11 | P.PN ---
Subjective Progress Note Date: 09/14/23 This is a 63-year-old female admitted with acute urinary tract infection with severe sepsis also with an extensive left decubitus ulcer, present on admission and is status post debridement with general surgery. Patient continues with confusion although appears more confused and not following commands today. Neurology undergoing further workup and CT was negative although will order MRI of the brain as patient's mentation is much altered. Patient culture showing MRSA with infectious disease following and will be requiring a PICC line for IV antibiotics in the outpatient setting. Initially plan was for patient to go home although patient also continues with the wound VAC as well as IV antibiotic therapy and family feels unsafe and unable to take care of her with all these needs. Patient will be evaluated by PT/OT therapy with case management following and will be working on plans for ECF on discharge. Review of systems: Unable to completely assess as patient is confused All medications have been reviewed Active Medications Acetaminophen (Acetaminophen Tab 325 Mg Tab) 325 mg PO Q6HR PRN PRN Reason: Mild Pain or Fever > 100.5 Acetaminophen/Codeine Phosphate (Acetaminophen-Codeine 300-30mg Tab) 1 each PO Q6HR PRN PRN Reason: Pain Last Admin: 09/13/23 17:38 Dose: 1 each Hydrocodone Bitart/Acetaminophen (Hydrocodone/Apap 5-325mg 1 Each Tab) 0.5 each PO Q6HR PRN PRN Reason: Pain Baclofen (Baclofen 10 Mg Tab) 20 mg PO Q12H [facility] Bupropion HCl (Bupropion Sr 100 Mg Tablet.Er) 200 mg PO DAILY [facility] Last Admin: 09/14/23 09:59 Dose: 200 mg Cyanocobalamin (Cyanocobalamin 500 Mcg Tab) 1,000 mcg PO DAILY [facility] Last Admin: 09/14/23 10:00 Dose: 1,000 mcg Famotidine (Famotidine 20 Mg Tab) 20 mg PO DAILY [facility] Last Admin: 09/14/23 10:00 Dose: 20 mg Folic Acid (Folic Acid 1 Mg Tab) 1 mg PO DAILY@1200 [facility] Last Admin: 09/14/23 13:31 Dose: Not Given Gabapentin (Gabapentin 400 Mg Cap) 800 mg PO QID PRN PRN Reason: Pain Last Admin: 09/11/23 20:38 Dose: 800 mg Heparin Sodium (Porcine) (Heparin Sodium,Porcine 5,000 Unit/Ml 1 Ml Vial) 5,000 unit SQ Q12HR [facility] Last Admin: 09/14/23 10:00 Dose: 5,000 unit Ceftriaxone Sodium 2 gm/ (Sodium Chloride) 50 mls @ 100 mls/hr IVPB [facility]; Protocol Last Admin: 09/13/23 20:42 Dose: 100 mls/hr Vancomycin HCl 1,250 mg/ (Sodium Chloride) 250 mls @ 125 mls/hr IVPB Q16H [facility] Last Admin: 09/14/23 12:51 Dose: 125 mls/hr Ibuprofen (Ibuprofen 800 Mg Tab) 800 mg PO Q8H PRN PRN Reason: Pain or Fever > 100.5 Mexiletine HCl (Mexiletine 150 Mg Cap) 150 mg PO DAILY [facility] Last Admin: 09/14/23 09:56 Dose: 150 mg Mirtazapine (Mirtazapine 15 Mg Tab) 15 mg PO [facility] Last Admin: 09/13/23 20:43 Dose: 15 mg Miscellaneous Information (Potassium Replacement Protocol 1 Each Misc) 1 each MISCELLANE DAILY PRN; Protocol PRN Reason: Per Protocol Multivitamins (Multivitamins, Thera 1 Each Tab) 1 each PO DAILY@1200 [facility] Last Admin: 09/14/23 13:31 Dose: Not Given Naloxone HCl (Naloxone 0.4 Mg/Ml 1 Ml Vial) 0.2 mg IV Q2M PRN PRN Reason: Opioid Reversal Potassium Bicarbonate (Potassium Bicarbonate/Cit Ac 20 Meq Tablet.Eff) 20 meq PO Q1HR [facility] Stop: 09/14/23 16:01 Sertraline HCl (Sertraline 50 Mg Tab) 50 mg PO DAILY [facility] Last Admin: 09/14/23 09:59 Dose: 50 mg Thiamine HCl (Thiamine 100 Mg Tab) 100 mg PO BID-W/MEALS [facility] Last Admin: 09/14/23 09:59 Dose: 100 mg PHYSICAL EXAMINATION: GENERAL: The patient is alert and oriented x1, Well developed, well nourished. Confused, somewhat restless HEENT: Pupils are round and equally reacting to light. EOMI. no scleral icterus. No conjunctival pallor. Normocephalic, atraumatic. No pharyngeal erythema. No thyromegaly. CARDIOVASCULAR: S1 and S2 muffled PULMONARY: diminished breath sounds bilaterally with no wheezing, some scattered rhonchi noted. ABDOMEN: soft. Nontender on exam. non-distended, normoactive bowel sounds. No palpable organomegaly. MUSCULOSKELETAL: No joint swelling or deformity. EXTREMITIES: No cyanosis, clubbing, or pedal edema. NEUROLOGICAL: Gross neurological examination did not reveal any focal deficits. Confused diffuse weakness SKIN: No rashes. Assessment: Acute urinary tract infection with severe sepsis, present on admission Left decubitus ulcer, gluteal area, stage IV, present on admission status post incision and drainage with MRSA on the cultures Increased creatinine with acute renal failure, present on admission, improving Hyponatremia Change in mental status, acute metabolic toxic encephalopathy multifactorial from possible delirium, medication effect and infection Chronic pain history Gait dysfunction with generalized weakness History of chronic back pain GI prophylaxis DVT prophylaxis Full code Plan: Recommend to continue with current medications and management with multiple medical consultations following. Patient was evaluated by general surgery underwent debridement of the sacral decubitus ulcer with a wound VAC and is being arranged in the outpatient setting for wound VAC as well as IV antibiotics with a PICC line that was ordered and pending as patient's cultures finalized showing MRSA and will require IV antibiotic therapy per infectious disease recommendations Patient more confused today and altered and did receive a dose of morphine today and Narcan was given without much improvement in mentation. Recommend holding all POINT OF CARE SPECIALIST and narcotic agents for now. Per nursing staff patient is not taking oral medications as well Chest x-ray was also obtained as patient was requiring 2 to 3 L of oxygen and chest x-ray showing some fluid overload and either developing patchy pulmonary edema versus pneumonia. Patient is afebrile and white count has normalized. Potassium 3.2 and being replaced per protocol. Neurology is following and undergoing further workup and will add MRI of the brain for evaluation Initially plan was to go home with family although they feel overwhelmed and that they cannot handle wound care with the wound VAC as well as IV antibiotic therapy with case management following working on possible ECF Due to multiple complex medical issues, prognosis is guarded The impression and plan of care has been dictated by Sonya Byers nurse practitioner as directed. Dr. Trey MD I have performed a history and examination and MDM of this patient, discussed the same with the dictator, and agree with the dictator's assessment and plan as written ,documented as a scribe. Based on total visit time, I have performed more than 50% of the visit. Any additional findings or plans will be noted. Objective - Vital Signs Vital signs: Vital Signs Temp 98.6 F 09/14/23 12:08 Pulse 102 H 09/14/23 12:08 Resp 22 09/14/23 12:25 BP 111/72 09/14/23 12:08 Pulse Ox 89 L 09/14/23 12:08 FiO2 Intake & Output 09/13/23 09/14/23 09/14/23 18:59 06:59 18:59 Intake Total 240 Output Total 300 500 300 Balance -300 -260 -300 Weight 72.575 kg Intake: Oral 240 Output: Urine 300 500 300 Other: Voiding Method External Catheter External Catheter - Labs CBC & Chem 7: 09/14/23 07:38 09/14/23 07:37 Labs: Abnormal Lab Results - Last 24 Hours (Table) 09/14/23 09/14/23 Range/Units 07:37 07:38 RBC 3.08 L (4.10-5.20) X 10*6/uL Hgb 9.7 L (12.0-15.0) g/dL Hct 29.7 L (37.2-46.3) % Immature Gran # 0.10 H (0.00-0.04) X 10*3/uL Monocytes # 1.03 H (0.20-1.00) X 10*3/uL Eosinophils # 0.40 H (0.04-0.35) X 10*3/uL Potassium 3.2 L (3.5-5.1) mmol/L Chloride 117 H (98-107) mmol/L Carbon Dioxide 18 L (22-30) mmol/L Calcium 8.1 L (8.4-10.2) mg/dL Microbiology - Last 24 Hours (Table) 09/12/23 07:05 Anaerobic Culture - Preliminary Buttock 09/12/23 07:05 Gram Stain - Final Buttock Wound Culture - Final Methicillin resist S. aureus 09/10/23 23:55 Blood Culture - Preliminary Blood 09/10/23 23:40 Blood Culture - Preliminary Blood 09/11/23 16:28 Gram Stain - Final Buttock Wound Culture - Final Methicillin resist S. aureus 09/11/23 16:28 Anaerobic Culture - Preliminary Buttock
[2023-09-14] MEDS: POTASSIUM BICARBONATE/CIT AC 20 MEQ TABLET.EFF PO SCH (15:22)
[2023-09-14] MEDS: FUROSEMIDE 10 MG/ML 4 ML VIAL IV STA (15:23)
[2023-09-14] MEDS: LORazepam 2 MG/ML INJ IV PRN (15:57)
--- NOTE | 2023-09-14 16:53 | P.PN ---
Subjective Progress Note Date: 09/14/23 I am followed up with the patient and that she is accompanied with her daughter. It seems the patient today is more confused according to the daughter and the she is having hallucination wander around. I spoke with the primary team THROAT CUTTER and I recommended to pursue MRI the brain and it seems was attempted but the patient would not cooperate even with the an Ativan of 1 mg per the nurse and he'll attempt to try tomorrow again. Upon seeing her patient was sleeping. Objective - Vital Signs Vital signs: Vital Signs Temp 98.9 F 09/14/23 12:57 Pulse 110 H 09/14/23 12:57 Resp 22 09/14/23 12:57 BP 123/77 09/14/23 12:57 Pulse Ox 94 L 09/14/23 12:57 FiO2 Intake & Output 09/13/23 09/14/23 09/14/23 18:59 06:59 18:59 Intake Total 240 Output Total 300 500 900 Balance -300 -260 -900 Weight 72.575 kg Intake: Oral 240 Output: Urine 300 500 900 Other: Voiding Method External Catheter External Catheter - Exam Gen.: Patient does not appear in acute distress. Is sleeping. Neuro- Limited since sleeping. Also received Ativan earlier today. No facial weakness. - Labs CBC & Chem 7: 09/14/23 07:38 09/14/23 07:37 Labs: Abnormal Lab Results - Last 24 Hours (Table) 09/14/23 09/14/23 Range/Units 07:37 07:38 RBC 3.08 L (4.10-5.20) X 10*6/uL Hgb 9.7 L (12.0-15.0) g/dL Hct 29.7 L (37.2-46.3) % Immature Gran # 0.10 H (0.00-0.04) X 10*3/uL Monocytes # 1.03 H (0.20-1.00) X 10*3/uL Eosinophils # 0.40 H (0.04-0.35) X 10*3/uL Potassium 3.2 L (3.5-5.1) mmol/L Chloride 117 H (98-107) mmol/L Carbon Dioxide 18 L (22-30) mmol/L Calcium 8.1 L (8.4-10.2) mg/dL Microbiology - Last 24 Hours (Table) 09/12/23 07:05 Anaerobic Culture - Preliminary Buttock 09/12/23 07:05 Gram Stain - Final Buttock Wound Culture - Final Methicillin resist S. aureus 09/10/23 23:55 Blood Culture - Preliminary Blood 09/10/23 23:40 Blood Culture - Preliminary Blood 09/11/23 16:28 Gram Stain - Final Buttock Wound Culture - Final Methicillin resist S. aureus 09/11/23 16:28 Anaerobic Culture - Preliminary Buttock Assessment and Plan Assessment: * Altered mental status, likely due to delirium, likely due to infection/left gluteal abscess. Also has very low normal vitamin B12 (233)--worse today * Status post excisional debridement of the skin and subcu to his tissue today. * Vapes Plan: * Patient has been having brain fog for the last couple months. She has very low normal B12 of 233: I started her on VItamin B12 1000mcg PO daily with one time IM on 09/13/23. Recommend receck * Serum folate is 10, ammonia is <9. She is on folic acid 1mg daily. * TSH: 1.520 * Carotid Doppler: Was reported as mild plaque formation in the carotid bifurcation but no significant stenosis based on the peak systolic velocity ratios. * Patient currently on ceftriaxone and vancomycin for gluteal abscess. * CT head: No acute process. * Because of her reoccurrence of confusion, will pursue with MRI the brain and EEG. The plan is discussed with patient's daughter and her nurse. Time with Patient: Less than 30
[2023-09-14] MEDS: POTASSIUM CHLORIDE 10 MEQ in WATER FOR INJECTION 1 100ML.BAG IVPB SCH (16:56)
[2023-09-14] MEDS ORDERED: BACLOFEN 10 MG TAB PO SCH (17:30)
[2023-09-14] MEDS: KETOROLAC 15 MG/ML 1 ML VIAL IVP PRN (23:57)
[2023-09-15 05:29] LABS: African American GFR (CKD) >90 (>60 ml/min/1.73 sqM); Non-African American GFR(CKD) >90 (>60 ml/min/1.73 sqM)
[2023-09-15] MEDS: LIDOCAINE 1% INJ 10MG/ML (30 ML VIAL-PF) SQ ONE (08:18)
[2023-09-15] MEDS ORDERED: LORazepam 2 MG/ML INJ IV PRN (08:38)
--- NOTE | 2023-09-15 08:47 | P.OP ---
Date of Procedure: 09/15/23 Description of Procedure: Date of Procedure: Preoperative Diagnosis: Need for long-term IV antibiotic access. Postoperative Diagnosis: Same. Procedure(s) Performed: Ultrasound-guided cannulation left basilic vein. Insertion of peripherally inserted central catheter under fluoroscopic guidance. Anesthesia: local (1% Xylocaine.) Surgeon: Hernan Estimated Blood Loss (ml): 5 IV fluids (ml): 0 Urine output (ml): 0 Pathology: none sent Condition: stable Disposition: no change Indications for Procedure: Patient is a patient will require long-term IV antibiotics as an outpatient patient is offered a PICC line to allow for intravenous administration of antibiotics. Description of Procedure: Patient was brought to the special procedure suite. The left upper extremity sterilely prepped and draped in usual manner. Ultrasound was utilized to identify the basilic vein which was normally compressible free of visible thrombus. Permenant image was stored. 1% Xylocaine was utilized for local anesthesia tissues overlying the vein. Through this anesthetized area and with the aid of ultrasound a micropuncture needle was utilized to cannulate the vein. Once cannulated, Softip guidewire was advanced into the vein. The needle was withdrawn and a micropuncture sheath and dilator advanced over the guidewire. The guidewire was withdrawn and exchanged for the PICC guidewire and measured 40 cm to the cavoatrial junction. The catheter was cut to size and advanced into the cavoatrial junction without resistance. The sheath was peeled away. Blood was easily withdrawn through the catheter and the catheter was then flushed with heparinized saline solution and secured to the skin. Patient tolerated procedure well and was returned to their room in satisfactory and stable condition.
[2023-09-15] MEDS: diphenhydrAMINE 50 MG/ML 1 ML VIAL IVP STA (09:44)
[2023-09-15] MEDS: LORazepam 2 MG/ML INJ IV PRN (09:45)
--- NOTE | 2023-09-15 10:41 | IR ---
PICC Insertion: EXAMINATION TYPE: IR cvc insert >=5 years Intraoperative/procedural fluoroscopic services were provid ed. CLINICAL INDICATION:Female, 63 years old with history of antibiotics,40cm, 0.1min fluoro; , [facility] Total fluoroscopy time is 0.1 min. DAP: Not reported Gycm2 uGym2 Please see the operative/procedural note for further details.
--- NOTE | 2023-09-15 11:21 | MR ---
EXAMINATION TYPE: MR brain wo con DATE OF EXAM: 09/15/2023 11:08 AM CLINICAL INDICATION:Female, 63 years old with history of altered mentation, Confusion COMPARISON: 09/10/2023. TECHNIQUE: Multi planar, multi sequence imaging was performed through the brain including: T1, T2, In version recovery, Diffusion weighted imaging, and gradient echo imaging. No gadolinium was given. FINDINGS: The patel-white junctions, ventricular system, basal cisterns appear unremarkable. Scattered foci of high T2 signal intensity are seen within the periventricular white matter. Midline structures show n o abnormality. Diffusion-weighted imaging shows no evidence of restricted diffusion. There is suscept ibility artifact within the left basal ganglia compatible with prior microhemorrhage versus vascular malformation. The bone marrow signal is within normal limits. Paranasal sinuses and mastoid air cells: No significant paranasal sinus disease. Visualized orbits: Bilateral aphakia IMPRESSION: 1. No evidence of intracranial mass or acute/subacute infarct. 2. Nonspecific white matter changes, likely secondary to small vessel ischemic disease.
--- NOTE | 2023-09-15 11:53 | P.PN ---
Subjective Progress Note Date: 09/15/23 Principal diagnosis: Reason for follow-up is sepsis and left gluteal necrotizing infection Patient is a 63-year female with a past medical history significant for chronic back pain depression was brought into the ER for evaluation of mental status changes, patient was noticed to be febrile elevated white count did have a positive UA and there was also concerning for cellulitis/abscess to the left gluteal area CT was suspicious for possible necrotizing infection Gen eral surgery to the patient to the OR and is s/p excisional debridement of the skin and subcutaneous tissue. On today's evaluation that is09/15/2023,the patient denies any fever or any chills, patient is breathing comfortably on room air, the patient denies chest pain shortness of breath and no significant cough, patient denies abdominal pain, no nausea vomiting or diarrhea. Denies any worsening pain to the left gluteal wound area and tolerating her wound VAC. Patient did have a creatinine 0.69 no CBC obtained today Objective - Vital Signs Vital signs: Vital Signs Temp 99 F 09/15/23 07:53 Pulse 98 09/15/23 07:53 Resp 19 09/15/23 07:53 BP 148/91 09/15/23 07:53 Pulse Ox 91 L 09/15/23 07:53 FiO2 Intake & Output 09/14/23 09/15/23 09/15/23 18:59 06:59 18:59 Output Total 1500 301 Balance -1500 -301 Output: Urine 1500 300 Stool 1 Other: Voiding Method External Catheter - Exam GENERAL DESCRIPTION: Middle-aged female lying in bed in no distress RESPIRATORY SYSTEM: Unlabored breathing , decreased breath sounds at bases HEART: S1 S2 regular rate and rhythm , ABDOMEN: Soft , no tenderness EXTREMITIES: No edema feet - Labs CBC & Chem 7: 09/14/23 07:38 09/15/23 05:03 Labs: Microbiology - Last 24 Hours (Table) 09/12/23 07:05 Anaerobic Culture - Preliminary Buttock 09/12/23 07:05 Gram Stain - Final Buttock Wound Culture - Final Methicillin resist S. aureus Assessment and Plan (1) Sepsis Current Visit: Yes Status: Acute Code(s): A41.9 - SEPSIS, UNSPECIFIED ORGANISM SNOMED Code(s): 49513300 (2) Abscess, gluteal, left Current Visit: Yes Status: Acute Code(s): L02.31 - CUTANEOUS ABSCESS OF BUTTOCK SNOMED Code(s): 84013781 (3) UTI (urinary tract infection) Current Visit: Yes Status: Acute Code(s): N39.0 - URINARY TRACT INFECTION, SITE NOT SPECIFIED SNOMED Code(s): 10109090 Plan: 1patient presented to hospital with sepsis source is multifactorial in this patient who did have a component of urinary tract infection however patient also noticed to have a infected pressure ulcer to the left gluteal area with associated cellulitis 2-patient did have CT of the pelvis/gluteal area concerning for necrotizing infection in this patient was status post surgical drainage and cultures are currently growing presumptive MRSA 3-patient did get a PICC line for outpatient IV antibiotics therapy we will continue patient on vancomycin induced 3 weeks on discharge and close outpatient follow-up Daughter at the bedside questions were answered Dictation was produced using [employer] dictation software. please excuse any grammatical, word or spelling errors. Time with Patient: Less than 30
--- NOTE | 2023-09-15 14:30 | P.PN ---
Subjective Progress Note Date: 09/15/23 This is a 63-year-old female admitted with acute urinary tract infection with severe sepsis also with an extensive left decubitus ulcer, present on admission and is status post debridement with general surgery. Patient continues with confusion although appears more confused and not following commands today. Neurology undergoing further workup and CT was negative although will order MRI of the brain as patient's mentation is much altered. Patient culture showing MRSA with infectious disease following and will be requiring a PICC line for IV antibiotics in the outpatient setting. Initially plan was for patient to go home although patient also continues with the wound VAC as well as IV antibiotic therapy and family feels unsafe and unable to take care of her with all these needs. Patient will be evaluated by PT/OT therapy with case management following and will be working on plans for ECF on discharge. 09/15/2023 Patient is seen and evaluated in follow-up this morning mentation appears to be improved and narcotics and PELLETISING EXTRUDER OPERATOR agents have been on hold. Patient scheduled to undergo MRI of the brain as she attempted to yesterday although was continuing to have restlessness and moving. Will give as needed Ativan to complete the testing. Patient with significant weakness and also is scheduled to receive a PICC line today for continued IV antibiotics recommend rehab on discharge. Ashley ent was initially reluctant wanting to go home although family reports they are unable to care for the wound and provide IV antibiotic therapy and recommend ECF. Case management following working on excepting ECF and if patient will require insurance authorization. Patient is afebrile with no reports of chest pain or shortness of breath. Currently on room air. Continue holding PELLETISING EXTRUDER OPERATOR agents and will continue with Motrin and/or Tylenol and Toradol as needed. Review of systems: Constitutional: No reports of fatigue, fever, or chills Cardiovascular: No reports of chest pain or palpitations Respiratory: No reports of shortness of breath or cough GI: No reports of nausea, vomiting, or diarrhea : No reports of dysuria or retention Neurovascular: reports of generalized weakness All medications have been reviewed PHYSICAL EXAMINATION: GENERAL: The patient is alert and oriented x 2, more awake and alert today, well developed, well nourished. HEENT: Pupils are round and equally reacting to light. EOMI. no scleral icterus. No conjunctival pallor. Normocephalic, atraumatic. No pharyngeal erythema. No thyromegaly. CARDIOVASCULAR: S1 and S2 muffled PULMONARY: diminished breath sounds bilaterally with no wheezing, some scattered rhonchi noted. ABDOMEN: soft. Nontender on exam. non-distended, normoactive bowel sounds. No palpable organomegaly. MUSCULOSKELETAL: No joint swelling or deformity. EXTREMITIES: No cyanosis, clubbing, or pedal edema. NEUROLOGICAL: Gross neurological examination did not reveal any focal deficits. Confused diffuse weakness SKIN: No rashes. Assessment: Acute urinary tract infection with severe sepsis, present on admission Left decubitus ulcer, gluteal area, stage IV, present on admission status post incision and drainage with MRSA on the cultures Increased creatinine with acute renal failure, present on admission, improving Hyponatremia secondary to poor oral intake, improving Change in mental status, acute metabolic toxic encephalopathy multifactorial from possible delirium, medication effect and infection, improving Chronic pain history Gait dysfunction with generalized weakness History of chronic back pain GI prophylaxis DVT prophylaxis Full code Plan: Recommend to continue with current medications and management with multiple medical consultations following. Patient was evaluated by general surgery underwent debridement of the sacral decubitus ulcer with a wound VAC and is being arranged in the outpatient setting for wound VAC as well as IV antibiotics with a PICC line that was ordered and pending as patient's cultures finalized showing MRSA and will require IV antibiotic therapy per infectious disease recommendations Patient mentation is improved somewhat today and less confused scheduled to undergo MRI of the brain which was negative Recommend holding all PELLETISING EXTRUDER OPERATOR and narcotic agents for now. Neurology is following and underwent MRI of the brain which was negative for acute process Initially plan was to go home with family although they feel overwhelmed and that they cannot handle wound care with the wound VAC as well as IV antibiotic therapy with case management following working on possible ECF Due to multiple complex medical issues, prognosis is guarded Possible discharge planning in the next 24 to 48 hours The impression and plan of care has been dictated by Sonya Byers nurse practitioner as directed. Dr. Trey MD I have performed a history and examination and MDM of this patient, discussed the same with the dictator, and agree with the dictator's assessment and plan a s written ,documented as a scribe. Based on total visit time, I have performed more than 50% of the visit. Any additional findings or plans will be noted. Objective - Vital Signs Vital signs: Vital Signs Temp 99 F 09/15/23 07:53 Pulse 98 02/14/24 07:53 Resp 19 09/15/23 07:53 BP 148/91 09/15/23 07:53 Pulse Ox 91 L 09/15/23 07:53 FiO2 Intake & Output 09/14/23 09/15/23 09/15/23 18:59 06:59 18:59 Output Total 1500 301 Balance -1500 -301 Output: Urine 1500 300 Stool 1 Other: Voiding Method External Catheter - Labs CBC & Chem 7: 09/14/23 07:38 09/15/23 05:03 Labs: Abnormal Lab Results - Last 24 Hours (Table) 09/14/23 Range/Units 07:38 RBC 3.08 L (4.10-5.20) X 10*6/uL Hgb 9.7 L (12.0-15.0) g/dL Hct 29.7 L (37.2-46.3) % Immature Gran # 0.10 H (0.00-0.04) X 10*3/uL Monocytes # 1.03 H (0.20-1.00) X 10*3/uL Eosinophils # 0.40 H (0.04-0.35) X 10*3/uL Microbiology - Last 24 Hours (Table) 09/12/23 07:05 Anaerobic Culture - Preliminary Buttock 09/12/23 07:05 Gram Stain - Final Buttock Wound Culture - Final Methicillin resist S. aureus 09/10/23 23:55 Blood Culture - Preliminary Blood 09/10/23 23:40 Blood Culture - Preliminary Blood
--- NOTE | 2023-09-15 16:03 | P.PN ---
Subjective Progress Note Date: 09/15/23 CHIEF COMPLAINT: Sacral decubitus ulcer HISTORY OF PRESENT ILLNESS: Patient is status post debridement postop day #3. Pain controlled. Culture growing MRSA. Afebrile. Mildly tachycardic. Patient had wound VAC placed yesterday PHYSICAL EXAM: VITAL SIGNS: Reviewed. GENERAL: Well-developed in no acute distress. ABDOMEN: Soft. Nondistended. Nontender. NEUROLOGIC: Alert and oriented. Cranial nerves II through XII grossly intact. Skin: Sacral decub wound VAC in place ASSESSMENT: 1. Necrotizing soft tissue infection of the left gluteal area status post incision and debridement PLAN: -Continue wound VAC -Continue antibiotics per ID service -Continue pain management and supportive care Physician Automotive Generator Repairer note has been reviewed by physician. Signing provider agrees with the documented findings, assessment, and plan of care. Objective - Vital Signs Vital signs: Vital Signs Temp 99 F 09/15/23 07:53 Pulse 98 09/15/23 07:53 Resp 19 09/15/23 07:53 BP 148/91 09/15/23 07:53 Pulse Ox 91 L 09/15/23 07:53 FiO2 Intake & Output 09/14/23 09/15/23 09/15/23 18:59 06:59 18:59 Output Total 1500 301 Balance -1500 -301 Output: Urine 1500 300 Stool 1 Other: Voiding Method External Catheter - Labs CBC & Chem 7: 09/14/23 07:38 09/15/23 05:03 Labs: Microbiology - Last 24 Hours (Table) 09/12/23 07:05 Anaerobic Culture - Preliminary Buttock 09/12/23 07:05 Gram Stain - Final Buttock Wound Culture - Final Methicillin resist S. aureus
--- NOTE | 2023-09-15 17:17 | P.PN ---
Subjective Progress Note Date: 09/15/23 I am following-up with patient and I spoke with daughter who was at bedside in morning then later in afternoon was accompanied by her and both state that she is better and mentation better. Objective - Vital Signs Vital signs: Vital Signs Temp 98.7 F 09/15/23 12:43 Pulse 105 H 09/15/23 12:43 Resp 16 09/15/23 12:43 BP 160/85 09/15/23 12:43 Pulse Ox 94 L 09/15/23 12:43 FiO2 Intake & Output 09/14/23 09/15/23 09/15/23 18:59 06:59 18:59 Output Total 1500 301 Balance -1500 -301 Output: Urine 1500 300 Stool 1 Other: Voiding Method External Catheter - Exam Gen.: Patient does not appear in acute distress. Is sleeping. Neuro- Received ativan for MRI Patient is mildly drowsy but is awakeable to voice. Is oriented to self and pl morenita. She named her name correctly. She is following simple commands. She named cup correctly. No facial weakness. No dysarthria. Lifting uppers above gravity. Wiggling toes. - Labs CBC & Chem 7: 09/14/23 07:38 09/15/23 05:03 Assessment and Plan Assessment: * Altered mental status, likely due to delirium, likely due to infection/left gluteal abscess and medication effect. Also has very low normal vitamin B12 (233)--today is better * Status post excisional debridement of the skin and subcu to his tissue today. * Vapes Plan: * Routine EEG: Is abnormal. The background slowing is suggestive of mild to moderate encephalopathy. The triphasic waves is due to toxic-metabolic derragement. There is no focal slowing, epileptiform discharges or seizure on the EEG. * MRI Brain: No evidence of intracranial mass or acute/subacute infarct. Nonspecific white matter changes, likely secondary to small vessel ischemic disease. I personally reviewed MRI and agree there is no acute or subacute ischemia. * Patient has been having brain fog for the last couple months. She has very low normal B12 of 233: I started her on VItamin B12 1000mcg PO daily with one time IM on 09/13/23. Recommend receck in a month. * Serum folate is 10, ammonia is <9. She is on folic acid 1mg daily. * TSH: 1.520 * Carotid Doppler: Was reported as mild plaque formation in the carotid bifurcation but no significant stenosis based on the peak systolic velocity ratios. * Patient currently on ceftriaxone and vancomycin for gluteal abscess. * CT head: No acute process. The plan is discussed with patient's daughter and who are at bedside. There is no further neurological work-up. Will follow-up sporadically. Time with Patient: Less than 30
--- NOTE | 2023-09-15 21:19 | EEG ---
ELECTROENCEPHALOGRAM REPORT CLINICAL HISTORY: This is a 63-year-old woman with altered mental status. The video EEG is obtained to evaluate for seizure epileptiform activity. RELEVANT MEDICATIONS: Wellbutrin and Ativan. EEG TYPE: A routine 21-channel EEG with video using the 10/20 electrode placement system. DESCRIPTION: The background consists of [id number] voltage of 7 hertz activity and at times, the background consists of diffuse nonrhythmic delta activity. There is no physiological stage 2 sleep architecture. There is no focal slowing. There is anterior to posterior lag with triphasic morphology. Interictal and ictal is none. ACTIVATION PROCEDURE: Photic stimulation hyperventilation is not performed. CLINICAL INTERPRETATION: This is an abnormal routine EEG. The background slowing is suggestive of mild-to- moderate encephalopathy. The triphasic waves are likely due to toxic metabolic derangement. Otherwise, there is no focal slowing, epileptiform discharge, or seizure on the EEG. Clinical correlation is recommended. ALIDA / MARTÍN: [id number] / MTDD
[2023-09-16 07:35] LABS: African American GFR (CKD) >90 (>60 ml/min/1.73 sqM); Non-African American GFR(CKD) >90 (>60 ml/min/1.73 sqM)
--- NOTE | 2023-09-16 12:02 | P.PN ---
Subjective Progress Note Date: 09/16/23 Principal diagnosis: Reason for follow-up is sepsis and left gluteal necrotizing infection Patient is a 63-year female with a past medical history significant for chronic back pain depression was brought into the ER for evaluation of mental status changes, patient was noticed to be febrile elevated white count did have a positive UA and there was also concerning for cellulitis/abscess to the left gluteal area CT was suspicious for possible necrotizing infection Gen eral surgery to the patient to the OR and is s/p excisional debridement of the skin and subcutaneous tissue. On today's evaluation that is 09/16/2023,the patient remains to be afebrile, patient is on room air not requiring supplemental oxygen and denies any shortness of breath no chest pain or cough.Patient denies having any nausea or vomiting, no abdominal pain and no diarrhea has been reported, pain to the left gluteal area controlled with the pain medication. Patient did have a creatinine 0.59 Vanco trough was 22.7 and urine culture has been negative Objective - Vital Signs Vital signs: Vital Signs Temp 98.3 F 09/16/23 07:55 Pulse 95 09/16/23 07:55 Resp 16 09/16/23 07:55 BP 147/92 09/16/23 07:55 Pulse Ox 96 09/16/23 07:55 FiO2 Intake & Output 09/15/23 09/16/23 09/16/23 18:59 06:59 18:59 Intake Total 590 Output Total 301 Balance -301 590 Weight 72.575 kg Intake: Oral 590 Output: Urine 300 Stool 1 Other: Voiding Method External Catheter External Catheter # Voids 1 3 # Bowel Movements 1 - Exam GENERAL DESCRIPTION: Middle-aged female lying in bed in no distress RESPIRATORY SYSTEM: Unlabored breathing , decreased breath sounds at bases HEART: S1 S2 regular rate and rhythm , ABDOMEN: Soft , no tenderness EXTREMITIES: No edema feet - Labs CBC & Chem 7: 09/14/23 07:38 09/16/23 06:17 Labs: Microbiology - Last 24 Hours (Table) 09/10/23 23:55 Blood Culture - Final Blood 09/10/23 23:40 Blood Culture - Final Blood 09/11/23 16:28 Anaerobic Culture - Final Buttock Assessment and Plan (1) Sepsis Current Visit: Yes Status: Acute Code(s): A41.9 - SEPSIS, UNSPECIFIED ORGANISM SNOMED Code(s): 03582360 (2) Abscess, gluteal, left Current Visit: Yes Status: Acute Code(s): L02.31 - CUTANEOUS ABSCESS OF BUTTOCK SNOMED Code(s): 75116242 (3) UTI (urinary tract infection) Current Visit: Yes Status: Acute Code(s): N39.0 - URINARY TRACT INFECTION, SITE NOT SPECIFIED SNOMED Code(s): 61801953 Plan: 1patient presented to hospital with sepsis source is multifactorial in this patient who did have a component of urinary tract infection however patient also noticed to have a infected pressure ulcer to the left gluteal area with associated cellulitis 2-patient did have CT of the pelvis/gluteal area concerning for necrotizing infection in this patient was status post surgical drainage and cultures are currently growing presumptive MRSA 3-patient did get a PICC line for outpatient IV antibiotics therapy 4-plan is for vancomycin pharmacy to dose target trough of 15 current dose of vancomycin should be cut back to keep the trough around 15 and kidney function to be monitored closely Daughter at the bedside multiple questions were answered Dictation was produced using [employer] dictation software. please excuse any grammatical, word or spelling errors. Time with Patient: Less than 30
--- NOTE | 2023-09-16 14:56 | P.PN ---
Subjective Progress Note Date: 09/16/23 This is a 63-year-old female admitted with acute urinary tract infection with severe sepsis also with an extensive left decubitus ulcer, present on admission and is status post debridement with general surgery. Patient continues with confusion although appears more confused and not following commands today. Neurology undergoing further workup and CT was negative although will order MRI of the brain as patient's mentation is much altered. Patient culture showing MRSA with infectious disease following and will be requiring a PICC line for IV antibiotics in the outpatient setting. Initially plan was for patient to go home although patient also continues with the wound VAC as well as IV antibiotic therapy and family feels unsafe and unable to take care of her with all these needs. Patient will be evaluated by PT/OT therapy with case management following and will be working on plans for ECF on discharge. 09/15/2023 Patient is seen and evaluated in follow-up this morning mentation appears to be improved and narcotics and CREW FOREMAN agents have been on hold. Patient scheduled to undergo MRI of the brain as she attempted to yesterday although was continuing to have restlessness and moving. Will give as needed Ativan to complete the testing. Patient with significant weakness and also is scheduled to receive a PICC line today for continued IV antibiotics recommend rehab on discharge. Ashley ent was initially reluctant wanting to go home although family reports they are unable to care for the wound and provide IV antibiotic therapy and recommend ECF. Case management following working on excepting ECF and if patient will require insurance authorization. Patient is afebrile with no reports of chest pain or shortness of breath. Currently on room air. Continue holding CREW FOREMAN agents and will continue with Motrin and/or Tylenol and Toradol as needed. 09/16/2023 Patient is seen and evaluated in follow-up today with neurology as well as infectious disease following. Patient underwent MRI of the brain showing no evidence of intracranial mass or subacute infarct with nonspecific white matter changes likely secondary to small vessel ischemic disease. Patient also underwent EEG which was abnormal secondary to mild to moderate encephalopathy likely due to toxic metabolic derangement otherwise no epileptiform discharges or seizure activity noted on EEG. Patient mentation is much improved and patient continues with overall weakness and generalized pain of the gluteal area. Patient is status post debridement with general surgery and culture showing MRSA and patient has received a PICC line as patient will be continued on IV antibiotics in the outpatient setting in the form of vancomycin. Patient with significant weakness continued antibiotic therapy and extensive wound care will be going to [facility]. Insurance authorization was submitted and pending at this time. Patient is now agreeable as family feels unsafe and overwhelmed to be able to handle her medical needs at this time. Patient is currently afebrile with no reports of chest pain or shortness of breath. Patient reports no appetite and not eating very much. Will initiate Megace and encouraged oral intake. Review of systems: Constitutional: No reports of fatigue, fever, or chills Cardiovascular: No reports of chest pain or palpitations Respiratory: No reports of shortness of breath or cough GI: No reports of nausea, vomiting, or diarrhea, reports not much of an appetite : No reports of dysuria or retention Neurovascular: reports of generalized weakness All medications have been reviewed PHYSICAL EXAMINATION: GENERAL: The patient is alert and oriented x 2-3, more awake and alert having conversation, answering questions appropriately, baseline per family at bedside, well developed, well nourished. HEENT: Pupils are round and equally reacting to light. EOMI. no scleral icterus. No conjunctival pallor. Normocephalic, atraumatic. No pharyngeal erythema. No thyromegaly. CARDIOVASCULAR: S1 and S2 muffled PULMONARY: diminished breath sounds bilaterally with no wheezing, some scattered rhonchi noted. ABDOMEN: soft. Nontender on exam. non-distended, normoactive bowel sounds. No palpable organomegaly. MUSCULOSKELETAL: No joint swelling or deformity. EXTREMITIES: No cyanosis, clubbing, or pedal edema. NEUROLOGICAL: Gross neurological examination did not reveal any focal deficits. Continued diffuse weakness SKIN: No rashes. Assessment: Acute urinary tract infection with severe sepsis, present on admission Left decubitus ulcer, gluteal area, stage IV, present on admission status post incision and drainage with MRSA on the cultures Increased creatinine with acute renal failure, present on admission, improving Hyponatremia secondary to poor oral intake, improving Change in mental status, acute metabolic toxic encephalopathy multifactorial from possible delirium, medication effect and infection, improved Chronic pain history Gait dysfunction with generalized weakness History of chronic back pain GI prophylaxis DVT prophylaxis Full code Plan: Recommend to continue with current medications and management with multiple medical consultations following. Patient was evaluated by general surgery underwent debridement of the sacral decubitus ulcer with a wound VAC and is being arranged in the outpatient setting for wound VAC as well as IV antibiotics with a PICC line that patient received as patient's cultures finalized showing MRSA and will require IV antibiotic therapy per infectious disease recommendations. Patient will continue on vancomycin in the outpatient setting. Patient mentation is improved today and less confused. Continue holding CREW FOREMAN and narcotic agents and patient underwent MRI which was negative for acute process Neurology is following and underwent MRI of the brain which was negative for acute process, EEG was abnormal although no epileptiform discharges or seizure activity noted Initially plan was to go home with family although they feel overwhelmed and that they cannot handle wound care with the wound VAC as well as IV antibiotic therapy with case management following working on possible ECF. Patient will require insurance authorization which has been submitted and pending at this time Possible discharge planning in the next 24 to 48 hours The impression and plan of care has been dictated by Sonya Byers, nurse practitioner as directed. Dr. Collette MD I have performed a history and examination and MDM of this patient, discussed the same with the dictator, and agree with the dictator's assessment and plan as written ,documented as a scribe. Based on total visit time, I have performed more than 50% of the visit. Any additional findings or plans will be noted. Objective - Vital Signs Vital signs: Vital Signs Temp 98.3 F 09/16/23 07:55 Pulse 95 09/16/23 07:55 Resp 16 09/16/23 07:55 BP 147/92 09/16/23 07:55 Pulse Ox 96 09/16/23 07:55 FiO2 Intake & Output 09/15/23 09/16/23 09/16/23 18:59 06:59 18:59 Intake Total 590 Output Total 301 Balance -301 590 Intake: Oral 590 Output: Urine 300 Stool 1 Other: Voiding Method External Catheter # Voids 1 3 # Bowel Movements 1 - Labs CBC & Chem 7: 09/14/23 07:38 09/16/23 06:17 Labs: Microbiology - Last 24 Hours (Table) 09/10/23 23:55 Blood Culture - Final Blood 09/10/23 23:40 Blood Culture - Final Blood 09/11/23 16:28 Anaerobic Culture - Final Buttock
[2023-09-16] MEDS: MEGESTROL 40 MG TAB PO SCH (15:33)
--- NOTE | 2023-09-16 16:04 | P.PN ---
Subjective Progress Note Date: 09/16/23 CHIEF COMPLAINT: Sacral decubitus ulcer HISTORY OF PRESENT ILLNESS: Patient is status post debridement postop day #4. Pain controlled. Afebrile. Patient awaiting insurance authorization for ECF placement PHYSICAL EXAM: VITAL SIGNS: Reviewed. GENERAL: Well-developed in no acute distress. ABDOMEN: Soft. Nondistended. Nontender. NEUROLOGIC: Alert and oriented. Cranial nerves II through XII grossly intact. Skin: Sacral decub wound VAC in place ASSESSMENT: 1. Necrotizing soft tissue infection of the left gluteal area status post incision and debridement PLAN: -Patient can be discharged from surgical standpoint -Continue wound VAC per wound care service -Continue antibiotics per ID service Physician Ordnance Engineer note has been reviewed by physician. Signing provider agrees with the documented findings, assessment, and plan of care. Objective - Vital Signs Vital signs: Vital Signs Temp 98.8 F 09/16/23 13:11 Pulse 95 09/16/23 13:11 Resp 17 09/16/23 13:11 BP 166/84 09/16/23 13:11 Pulse Ox 92 L 09/16/23 13:11 FiO2 Intake & Output 09/15/23 09/16/23 09/16/23 18:59 06:59 18:59 Intake Total 590 Output Total 301 Balance -301 590 Weight 72.575 kg Intake: Oral 590 Output: Urine 300 Stool 1 Other: Voiding Method External Catheter External Catheter # Voids 1 3 # Bowel Movements 1 - Labs CBC & Chem 7: 09/14/23 07:38 09/16/23 06:17 Labs: Microbiology - Last 24 Hours (Table) 09/12/23 07:05 Anaerobic Culture - Final Buttock 09/10/23 23:55 Blood Culture - Final Blood 09/10/23 23:40 Blood Culture - Final Blood 09/11/23 16:28 Anaerobic Culture - Final Buttock
[2023-09-17] MEDS: VANCOMYCIN TROUGH DUE 1 EACH MISC MISCELLANE ONE (04:46)
--- NOTE | 2023-09-17 12:38 | P.DS ---
Providers Date of admission: 09/11/23 03:07 Expected date of discharge: 09/16/23 Attending physician: Tony Yang Consults: 09/11/23 12:42 Consult Physician Routine Consulting Provider: Vandana Anand Consult Reason/Comments: change in mentation Do you want consulting provider notified?: Yes 09/11/23 13:20 Consult Physician Routine Consulting Provider: Yenifer Zuniga Consult Reason/Comments: sepsis Do you want consulting provider notified?: Yes 09/11/23 23:12 Consult Physician Urgent Consulting Provider: Kiko Chaudhari Consult Reason/Comments: Left gluteal abscess ?necrotizing infection Do you want consulting provider notified?: Yes 09/13/23 07:44 Consult Physician Routine Consulting Provider: Cl Briseno Consult Reason/Comments: gluteal abscess Do you want consulting provider notified?: Already Contacted Primary care physician: Yahaira Bahena, LAURA Hospital Course: Final diagnosis Acute urinary tract infection with severe sepsis, present on admission Left decubitus ulcer, gluteal area, stage IV, present on admission status post incision and drainage with MRSA on the cultures Increased creatinine with acute renal failure, present on admission, improving Hyponatremia secondary to poor oral intake, improving Change in mental status, acute metabolic toxic encephalopathy multifactorial from possible delirium, medication effect and infection, improved Chronic pain history Gait dysfunction with generalized weakness History of chronic back pain GI prophylaxis DVT prophylaxis Full code Discharge disposition Patient is being discharged in a stable condition with guarded prognosis to [facility]. Patient will follow-up with Yahaira Bahena ANGLEDOZER OPERATOR in the outpatient setting upon discharge. Patient is to continue with a PICC line and IV antibiotics in the form of vancomycin for the next 2 weeks per ID recommendations and outpatient follow-up with Dr. Zuniga as scheduled. Total time taken is greater than 35 minutes. Hospital course This is a 63-year-old female who was recently admitted with concerns of urinary tract infection with severe sepsis also noted to have an extensive left decubital ulcer that is status post debridement with general surgery and cultures finalized showing MRSA and patient has received a PICC line and will continue on 2 weeks of IV antibiotics. Patient was seen and evaluated by physical therapy recommending rehab and initially patient was reluctant although family is concerned and unable to help her with extensive wound care along with IV antibiotic therapy. Patient is agreeable currently awaiting insurance authorization. Patient will be going to [facility]. Currently no reports of chest pain, shortness of breath, or palpitations. Patient is afebrile. No reports of nausea or vomiting and patient is tolerating diet. Patient will be going to [facility] today. Physical exam: Gen: This is a 63-year-old female who is awake, alert and oriented, thin built, elderly appearing, well-developed HEENT: Head is atraumatic, normocephalic. Pupils equal, round. Sclerae is anicteric. NECK: Supple. No JVD. No lymphadenopathy. No thyromegaly. LUNGS: Diminished breath sounds bilaterally otherwise clear to auscultation. No wheezes or rhonchi. No intercostal retractions. HEART: Regular rate and rhythm. No murmur. ABDOMEN: Soft. Bowel sounds are present. No masses. No tenderness. EXTREMITIES: No pedal edema. No calf tenderness. NEUROLOGICAL: Patient is awake, alert and oriented x3. Cranial nerves 2 through 12 are grossly intact. Diffusely weak Please refer to medication reconciliation sheet for a list of medications. The impression and plan of care has been dictated by Sonya Byers, Nurse Practitioner as directed. Dr. Collette MD I have performed a history and examination and MDM of this patient, discussed the same with the dictator, and agree with the dictator's assessment and plan as written ,documented as a scribe. Based on total visit time, I have performed more than 50% of the visit. Patient Condition at Discharge: Fair Plan - Discharge Summary New Discharge Prescriptions: New Heparin Sodium,Porcine (1 ml) [Heparin Sodium] 5,000 unit SQ Q12HR each Multivitamins, Thera [Multivitamin (formulary)] 1 each PO DAILY@1200 tab Thiamine [Vitamin B-1] 100 mg PO BID-W/MEALS tab Vancomycin 1,500 mg IVPB Q16H 14 Days #14 each Folic Acid 1 mg PO DAILY@1200 tab Megestrol [Megace] 80 mg PO DAILY tab Acetaminophen Tab [Tylenol] 650 mg PO Q6HR PRN tab PRN Reason: Mild Pain Or Fever > 100.5 Cyanocobalamin [Vitamin B-12] 1,000 mcg PO DAILY tab Continue Alpha Lipoic Acid 600 mg PO DAILY buPROPion HCL [Wellbutrin SR] 200 mg PO DAILY Mexiletine HCl 150 mg PO DAILY Sertraline [Zoloft] 100 mg PO DAILY Famotidine [Pepcid] 20 mg PO DAILY Mirtazapine 30 mg PO HS Ibuprofen [Motrin] 800 mg PO Q8H PRN PRN Reason: Pain Or Fever > 100.5 Changed Gabapentin 300 mg PO TID #4 tab Discontinued Baclofen [Lioresal] 20 mg PO Q6H Buprenorphine [Butrans 5 MCG/HR] 1 patch TRANSDERM DIRECTED Pantoprazole [Protonix] 40 mg PO DAILY Discharge Medication List Alpha Lipoic Acid 600 mg PO DAILY 09/10/23 [History] Famotidine [Pepcid] 20 mg PO DAILY 09/10/23 [History] Ibuprofen [Motrin] 800 mg PO Q8H PRN 09/10/23 [History] Mexiletine HCl 150 mg PO DAILY 09/10/23 [History] Mirtazapine 30 mg PO HS 09/10/23 [History] Sertraline [Zoloft] 100 mg PO DAILY 09/10/23 [History] buPROPion HCL [Wellbutrin SR] 200 mg PO DAILY 09/10/23 [History] Acetaminophen Tab [Tylenol] 650 mg PO Q6HR PRN tab 09/17/23 [Rx] Cyanocobalamin [Vitamin B-12] 1,000 mcg PO DAILY tab 09/17/23 [Rx] Folic Acid 1 mg PO DAILY@1200 tab 09/17/23 [Rx] Gabapentin 300 mg PO TID #4 tab 09/17/23 [Rx] Heparin Sodium,Porcine (1 ml) [Heparin Sodium] 5,000 unit SQ Q12HR each 09/17/23 [Rx] Megestrol [Megace] 80 mg PO DAILY tab 09/17/23 [Rx] Multivitamins, Thera [Multivitamin (formulary)] 1 each PO DAILY@1200 tab 09/17/23 [Rx] Thiamine [Vitamin B-1] 100 mg PO BID-W/MEALS tab 09/17/23 [Rx] Vancomycin 1,500 mg IVPB Q16H 14 Days #14 each 09/17/23 [Rx] Follow up Appointment(s)/Referral(s): Yahaira Bahena NPC [Primary Care Provider] - 1-2 days Yenifer Zuniga MD [STAFF PHYSICIAN] - 1 Week Activity/Diet/Wound Care/Special Instructions: Patient is going to [facility] Activity as tolerated Continue with wound VAC Continue with local wound care to the coccyx sacrum area in the left buttock by applying negative pressure wound VAC at 120 mmHg with continuous pressure and change dressings Wednesday//Wednesday using medium black GranuFoam Patient did receive a PICC line and will be continued on antibiotic therapy in the form of vancomycin for 2 weeks with pharmacy to dose recommend continued labs of sed rate, CBC, CRP, Vanco trough, BMP Continue low-fat diet Continue to encourage oral intake and continue with Ensure supplements 3 times daily between meals, patient likes chocolate Discharge Disposition: TRANSFER TO SNF/ECF
--- NOTE | 2023-09-17 13:06 | P.PN ---
Subjective Progress Note Date: 09/17/23 CHIEF COMPLAINT: Sacral decubitus ulcer HISTORY OF PRESENT ILLNESS: Patient is status post debridement postop day #5. Pain controlled. Afebrile. Patient awaiting insurance authorization for ECF placement PHYSICAL EXAM: VITAL SIGNS: Reviewed. GENERAL: Well-developed in no acute distress. ABDOMEN: Soft. Nondistended. Nontender. NEUROLOGIC: Alert and oriented. Cranial nerves II through XII grossly intact. Skin: Sacral decub wound VAC in place ASSESSMENT: 1. Necrotizing soft tissue infection of the left gluteal area status post incision and debridement PLAN: -Patient can be discharged from surgical standpoint -Continue wound VAC per wound care service -Continue antibiotics per ID service Physician Insulation Worker Furnace Installer note has been reviewed by physician. Signing provider agrees with the documented findings, assessment, and plan of care. Objective - Vital Signs Vital signs: Vital Signs Temp 99.3 F 09/17/23 07:48 Pulse 93 09/17/23 07:48 Resp 17 09/17/23 07:48 BP 163/83 09/17/23 07:48 Pulse Ox 97 09/17/23 07:48 FiO2 Intake & Output 09/16/23 09/17/23 09/17/23 18:59 06:59 18:59 Intake Total 680 850 Output Total 600 650 Balance 80 200 Weight 72.575 kg Intake: Intake, IV Titration 250 Amount Vancomycin 1,250 mg In 250 Sodium Chloride 0.9% 250 ml @ 125 mls/hr IVPB Q16H [facility] Rx#:[id number] Oral 680 600 Output: Urine 600 650 Other: Voiding Method External Catheter External Catheter External Catheter # Voids 1 1 # Bowel Movements 2 1 - Labs CBC & Chem 7: 09/14/23 07:38 09/16/23 06:17 Labs: Microbiology - Last 24 Hours (Table) 09/12/23 07:05 Anaerobic Culture - Final Buttock
[2023-09-17 14:35] VITALS: PULSE 94
--- NOTE | 2023-09-17 15:16 | P.PN ---
Subjective Progress Note Date: 09/17/23 Principal diagnosis: Reason for follow-up is sepsis and left gluteal necrotizing infection Patient is a 63-year female with a past medical history significant for chronic back pain depression was brought into the ER for evaluation of mental status changes, patient was noticed to be febrile elevated white count did have a positive UA and there was also concerning for cellulitis/abscess to the left gluteal area CT was suspicious for possible necrotizing infection Gen eral surgery to the patient to the OR and is s/p excisional debridement of the skin and subcutaneous tissue. On today's evaluation that is 09/17/2023, the patient continues to be afebrile, the patient is on room air and breathing comfortably, the Pt denies having any chest pain or cough, the patient denies having any abdominal pain no vomiting or any diarrhea has been reported by the nursing staff, denies any worsening pain to the left gluteal wound area. Vanco trough low at 10.9 creatinine 0.59 culture with MRSA and blood cultures negative blood culture negative Objective - Vital Signs Vital signs: Vital Signs Temp 99.3 F 09/17/23 07:48 Pulse 93 09/17/23 07:48 Resp 17 09/17/23 07:48 BP 163/83 09/17/23 07:48 Pulse Ox 97 09/17/23 07:48 FiO2 Intake & Output 09/16/23 09/17/23 09/17/23 18:59 06:59 18:59 Intake Total 680 850 Output Total 600 650 Balance 80 200 Weight 72.575 kg Intake: Intake, IV Titration 250 Amount Vancomycin 1,250 mg In 250 Sodium Chloride 0.9% 250 ml @ 125 mls/hr IVPB Q16H [facility] Rx#:[id number] Oral 680 600 Output: Urine 600 650 Other: Voiding Method External Catheter External Catheter External Catheter # Voids 1 1 # Bowel Movements 2 1 - Exam GENERAL DESCRIPTION: Middle-aged female lying in bed in no distress RESPIRATORY SYSTEM: Unlabored breathing , decreased breath sounds at bases HEART: S1 S2 regular rate and rhythm , ABDOMEN: Soft , no tenderness, patient did have extensive wound to the left gluteal area with some tunneling wound base looks clean,No surrounding induration EXTREMITIES: No edema feet - Labs CBC & Chem 7: 09/14/23 07:38 09/16/23 06:17 Labs: Microbiology - Last 24 Hours (Table) 09/12/23 07:05 Anaerobic Culture - Final Buttock Assessment and Plan (1) Sepsis Current Visit: Yes Status: Acute Code(s): A41.9 - SEPSIS, UNSPECIFIED ORGANISM SNOMED Code(s): 03499025 (2) Abscess, gluteal, left Current Visit: Yes Status: Acute Code(s): L02.31 - CUTANEOUS ABSCESS OF BUTTOCK SNOMED Code(s): 25082878 (3) UTI (urinary tract infection) Current Visit: Yes Status: Acute Code(s): N39.0 - URINARY TRACT INFECTION, SITE NOT SPECIFIED SNOMED Code(s): 34483424 Plan: 1patient presented to hospital with sepsis source is multifactorial in this patient who did have a component of urinary tract infection however patient also noticed to have a infected pressure ulcer to the left gluteal area with associated cellulitis 2-patient did have CT of the pelvis/gluteal area concerning for necrotizing infection in this patient was status post surgical drainage and cultures are currently growing presumptive MRSA 3-patient did get a PICC line for outpatient IV antibiotics therapy 4-patient to continue with vancomycin pharmacy to dose target trough 15 for 2 weeks local wound care to continue with wound VAC and close outpatient follow-up question concern answered Dictation was produced using [employer] dictation software. please excuse any grammatical, word or spelling errors. Time with Patient: Less than 30
--- NOTE | 2023-09-17 15:35 | P.DS ---
Providers Date of admission: 09/11/23 03:07 Expected date of discharge: 09/17/23 Attending physician: Tony Yang Consults: 09/11/23 12:42 Consult Physician Routine Consulting Provider: Vandana Anand Consult Reason/Comments: change in mentation Do you want consulting provider notified?: Yes 09/11/23 13:20 Consult Physician Routine Consulting Provider: Yenifer Zuniga Consult Reason/Comments: sepsis Do you want consulting provider notified?: Yes 09/11/23 23:12 Consult Physician Urgent Consulting Provider: Kiko Chaudhari Consult Reason/Comments: Left gluteal abscess ?necrotizing infection Do you want consulting provider notified?: Yes 09/13/23 07:44 Consult Physician Routine Consulting Provider: Cl Briseno Consult Reason/Comments: gluteal abscess Do you want consulting provider notified?: Already Contacted Primary care physician: Yahaira Bahena, LAURA Hospital Course: Final diagnosis Acute urinary tract infection with severe sepsis, present on admission Left decubitus ulcer, gluteal area, stage IV, present on admission status post incision and drainage with MRSA on the cultures Increased creatinine with acute renal failure, present on admission, improving Hyponatremia secondary to poor oral intake, improving Change in mental status, acute metabolic toxic encephalopathy multifactorial from possible delirium, medication effect and infection, improved Chronic pain history Gait dysfunction with generalized weakness History of chronic back pain GI prophylaxis DVT prophylaxis Full code Discharge disposition Patient is being discharged in a stable condition with guarded prognosis to [facility]. Patient will follow-up with Yahaira Bahena [facility] in the outpatient setting upon discharge. Patient is to continue with a PICC line and IV antibiotics in the form of vancomycin for the next 2 weeks per ID recommendations and outpatient follow-up with Dr. Zuniga as scheduled. Total time taken is greater than 35 minutes. Hospital course This is a 63-year-old female who was recently admitted with concerns of urinary tract infection with severe sepsis also noted to have an extensive left decubital ulcer that is status post debridement with general surgery and cultures finalized showing MRSA and patient has received a PICC line and will continue on 2 weeks of IV antibiotics. Patient was seen and evaluated by physical therapy recommending rehab and initially patient was reluctant although family is concerned and unable to help her with extensive wound care along with IV antibiotic therapy. Patient is agreeable currently awaiting insurance authorization. Patient will be going to [facility]. Currently no reports of chest pain, shortness of breath, or palpitations. Patient is afebrile. No reports of nausea or vomiting and patient is tolerating diet. Patient will be going to [facility] today. Patient has received insurance authorization and will be discharged today. High risk for readmissions. Physical exam: Gen: This is a 63-year-old female who is awake, alert and oriented, thin built, elderly appearing, well-developed HEENT: Head is atraumatic, normocephalic. Pupils equal, round. Sclerae is anicteric. NECK: Supple. No JVD. No lymphadenopathy. No thyromegaly. LUNGS: Diminished breath sounds bilaterally otherwise clear to auscultation. No wheezes or rhonchi. No intercostal retractions. HEART: Regular rate and rhythm. No murmur. ABDOMEN: Soft. Bowel sounds are present. No masses. No tenderness. EXTREMITIES: No pedal edema. No calf tenderness. NEUROLOGICAL: Patient is awake, alert and oriented x3. Cranial nerves 2 through 12 are grossly intact. Diffusely weak Please refer to medication reconciliation sheet for a list of medications. The impression and plan of care has been dictated by Sonya Byers, Nurse Practitioner as directed. Dr. Collette MD I have performed a history and examination and MDM of this patient, discussed the same with the dictator, and agree with the dictator's assessment and plan as written ,documented as a scribe. Based on total visit time, I have performed more than 50% of the visit. Patient Condition at Discharge: Fair Patient Condition at Discharge: Fair Plan - Discharge Summary New Discharge Prescriptions: New Heparin Sodium,Porcine (1 ml) [Heparin Sodium] 5,000 unit SQ Q12HR each Multivitamins, Thera [Multivitamin (formulary)] 1 each PO DAILY@1200 tab Thiamine [Vitamin B-1] 100 mg PO BID-W/MEALS tab Vancomycin 1,500 mg IVPB Q16H 14 Days #14 each Folic Acid 1 mg PO DAILY@1200 tab Megestrol [Megace] 80 mg PO DAILY tab Acetaminophen Tab [Tylenol] 650 mg PO Q6HR PRN tab PRN Reason: Mild Pain Or Fever > 100.5 Cyanocobalamin [Vitamin B-12] 1,000 mcg PO DAILY tab Continue Alpha Lipoic Acid 600 mg PO DAILY buPROPion HCL [Wellbutrin SR] 200 mg PO DAILY Mexiletine HCl 150 mg PO DAILY Sertraline [Zoloft] 100 mg PO DAILY Famotidine [Pepcid] 20 mg PO DAILY Mirtazapine 30 mg PO HS Ibuprofen [Motrin] 800 mg PO Q8H PRN PRN Reason: Pain Or Fever > 100.5 Changed Gabapentin 300 mg PO TID #4 tab Discontinued Baclofen [Lioresal] 20 mg PO Q6H Buprenorphine [Butrans 5 MCG/HR] 1 patch TRANSDERM DIRECTED Pantoprazole [Protonix] 40 mg PO DAILY Discharge Medication List Alpha Lipoic Acid 600 mg PO DAILY 09/10/23 [History] Famotidine [Pepcid] 20 mg PO DAILY 09/10/23 [History] Ibuprofen [Motrin] 800 mg PO Q8H PRN 09/10/23 [History] Mexiletine HCl 150 mg PO DAILY 09/10/23 [History] Mirtazapine 30 mg PO HS 09/10/23 [History] Sertraline [Zoloft] 100 mg PO DAILY 09/10/23 [History] buPROPion HCL [Wellbutrin SR] 200 mg PO DAILY 09/10/23 [History] Acetaminophen Tab [Tylenol] 650 mg PO Q6HR PRN tab 09/17/23 [Rx] Cyanocobalamin [Vitamin B-12] 1,000 mcg PO DAILY tab 09/17/23 [Rx] Folic Acid 1 mg PO DAILY@1200 tab 09/17/23 [Rx] Gabapentin 300 mg PO TID #4 tab 09/17/23 [Rx] Heparin Sodium,Porcine (1 ml) [Heparin Sodium] 5,000 unit SQ Q12HR each 09/17/23 [Rx] Megestrol [Megace] 80 mg PO DAILY tab 09/17/23 [Rx] Multivitamins, Thera [Multivitamin (formulary)] 1 each PO DAILY@1200 tab 09/17/23 [Rx] Thiamine [Vitamin B-1] 100 mg PO BID-W/MEALS tab 09/17/23 [Rx] Vancomycin 1,500 mg IVPB Q16H 14 Days #14 each 09/17/23 [Rx] Follow up Appointment(s)/Referral(s): Yahaira Bahena, LAURA [Primary Care Provider] - 1-2 days Efrain,Sajjad, MD [STAFF PHYSICIAN] - 1 Week Activity/Diet/Wound Care/Special Instructions: Patient is going to [facility] Activity as tolerated Continue with wound VAC Continue with local wound care to the coccyx sacrum area in the left buttock by applying negative pressure wound VAC at 120 mmHg with continuous pressure and change dressings Wednesday//Wednesday using medium black GranuFoam Patient did receive a PICC line and will be continued on antibiotic therapy in the form of vancomycin for 2 weeks with pharmacy to dose recommend continued labs of sed rate, CBC, CRP, Vanco trough, BMP Continue low-fat diet Continue to encourage oral intake and continue with Ensure supplements 3 times daily between meals, patient likes chocolate Discharge Disposition: TRANSFER TO SNF/ECF
[2023-09-17 20:16] VITALS: BP 113/82; RESP 16; TEMP 98
[2023-09-17] MEDS ORDERED: VANCOMYCIN 1,500 MG in SODIUM CHLORIDE 0.9% 500 ML 500 ML IVPB SCH (21:00)
== END 2023-09-17 21:04 | DRG 853 ==
LOC: EC 20:08 → 6NMEDSUR 09-11 03:06 → OBSVTOIN 09-11 03:07 → 5NMEDONC 09-11 14:02
PROVIDERS: ADMIT Hospitalist; ATTEND Hospitalist
PROC: 0JB90ZZ Excision of Buttock Subcutaneous Tissue and Fascia, Open Approach (ICD-10-PCS; principal; 2023-09-12 05:16)
PROC: 02HV33Z Insertion of Infusion Device into Superior Vena Cava, Percutaneous Approach (ICD-10-PCS; 2023-09-15)
DX: A41.9 Sepsis, unspecified organism (principal); G92.8 Other toxic encephalopathy; L89.324 Pressure ulcer of left buttock, stage 4; E87.1 Hypo-osmolality and hyponatremia; N39.0 Urinary tract infection, site not specified; L02.31 Cutaneous abscess of buttock; L03.317 Cellulitis of buttock; N17.9 Acute kidney failure, unspecified; G62.9 Polyneuropathy, unspecified; B95.62 Methicillin resistant Staphylococcus aureus infection as the cause of diseases classified elsewhere; F17.290 Nicotine dependence, other tobacco product, uncomplicated; R65.20 Severe sepsis without septic shock; T50.915A Adverse effect of multiple unspecified drugs, medicaments and biological substances, initial encounter; G89.29 Other chronic pain; M54.9 Dorsalgia, unspecified; R26.9 Unspecified abnormalities of gait and mobility; Z28.310 Unvaccinated for COVID-19; Z28.21 Immunization not carried out because of patient refusal; Z71.3 Dietary counseling and surveillance; Z88.8 Allergy status to other drugs, medicaments and biological substances; Z99.3 Dependence on wheelchair; Z79.899 Other long term (current) drug therapy
CPT/HCPCS: 36415; 36573; 70450; 70551; 71045; 71046; 72192; 80048; 80053; 80171; 80202; 81001; 82140; 82565; 82607; 82746; 83605; 84132; 84443; 84484; 85025; 85610; 85730; 87040; 87070; 87075; 87077; 87086; 87186; 87205; 87636; 88304; 93005; 93880; 95816; 96361; 96374; 99285

== ENCOUNTER 2023-09-22 17:46 | Emergency (ER) | payer BC ==
[2023-09-22 18:34] VITALS: RESP 18; TEMP 98.5
[2023-09-22 18:47] LABS: Basophils # (A) 0.1 k/uL (0-0.2); Basophils % (A) 1 %; Eosinophils # (A) 0.3 k/uL (0-0.7); Eosinophils % (A) 3 %; HCT 34.5 % (34.0-46.0); HGB 11.5 gm/dL (11.4-16.0); Hypochromasia Slight; Lymphocytes % (A) 25 %; MCH 32.6 pg (25.0-35.0); MCHC 33.3 g/dL (31.0-37.0); MCV 97.8 fL (80.0-100.0); Mean Platelet Volume 8.9; Monocytes # (A) 0.5 k/uL (0-1.0); Monocytes % (A) 6 %; Neutrophils % (A) 62 %; RBC 3.53 m/uL (3.80-5.40); RDW 14.3 % (11.5-15.5); WBC 8.1 k/uL (3.8-10.6)
[2023-09-22 19:02] LABS: ALT 21 U/L (4-34); AST 22 U/L (14-36); African American GFR (CKD) >90 (>60 ml/min/1.73 sqM); Albumin 3.2 g/dL (3.5-5.0); Alkaline Phosphatase 88 U/L (38-126); Anion Gap 7 mmol/L; Blood Urea Nitrogen 13 mg/dL (7-17); Calcium 8.9 mg/dL (8.4-10.2); Carbon Dioxide 22 mmol/L (22-30); Chloride 113 mmol/L (98-107); Glucose 80 mg/dL (74-99); Magnesium 2.3 mg/dL (1.6-2.3); Non-African American GFR(CKD) 85 (>60 ml/min/1.73 sqM); Potassium 3.8 mmol/L (3.5-5.1); Sodium 142 mmol/L (137-145); Total Bilirubin 0.4 mg/dL (0.2-1.3)
[2023-09-22 19:07] LABS: Platelet Count 460 k/uL (150-450)
[2023-09-22 19:28] VITALS: BP 144/78; PULSE 61
--- NOTE | 2023-09-22 19:44 | ED ---
General Adult HPI - General Chief complaint: Recheck/Abnormal Lab/Rx Stated complaint: Abd Labs Source: patient, EMS, RN notes reviewed Mode of arrival: EMS Limitations: no limitations - History of Present Illness Initial comments: 63-year-old female presents emergency department as a transfer from [facility]. It was reported that the patient had laboratory studies completed and was found to have a low hemoglobin. Patient transferred to the hospital for further treatment. Patient denies black or bloody stools. Admits to weakness however this has been chronic. Patient recently hospitalized at our facility for a sacral wound. - Related Data Home Medications Medication Instructions Recorded Confirmed Alpha Lipoic Acid 600 mg PO DAILY 09/10/23 09/22/23 Famotidine [Pepcid] 20 mg PO DAILY@0800 09/10/23 09/22/23 Mirtazapine 30 mg PO HS 09/10/23 09/22/23 Sertraline [Zoloft] 100 mg PO HS 09/10/23 09/22/23 buPROPion HCL [Wellbutrin SR] 200 mg PO DAILY@0800 09/10/23 09/22/23 Acetaminophen [Tylenol 8 Hour] 650 mg PO Q6H PRN 09/22/23 09/22/23 Cyanocobalamin [Vitamin B-12] 1,000 mcg PO DAILY@0800 09/22/23 09/22/23 Folic Acid 1 mg PO DAILY@0800 09/22/23 09/22/23 Gabapentin [Neurontin] 300 mg PO TID@0500,1300,2100 09/22/23 09/22/23 Heparin Sodium,Porcine (1 ml) 5,000 unit SQ Q12HR@0800,2000 09/22/23 09/22/23 [Heparin Sodium] Multivitamins, Thera [Multivitamin 1 tab PO DAILY@0800 09/22/23 09/22/23 (formulary)] Prostat Awc 30 ml PO BID 09/22/23 09/22/23 Saccharomyces Boulardii 250 mg PO BID 09/22/23 09/22/23 [Saccharomycin Df] Thiamine [Vitamin B-1] 100 mg PO BID@0800,1600 09/22/23 09/22/23 Allergies Allergy/AdvReac Type Severity Reaction Status Date / Time buprenorphine [From Belbuca] Allergy Dyspnea Verified 09/22/23 19:04 celecoxib [From Celebrex] Allergy Unknown Verified 09/22/23 19:04 Childhood duloxetine [From Cymbalta] Allergy Itching Verified 09/22/23 19:04 omeprazole [From Prilosec] Allergy Unknown Verified 09/22/23 19:04 Childhood venlafaxine [From Effexor] Allergy Itching Verified 09/22/23 19:04 Review of Systems ROS Statement: Those systems with pertinent positive or pertinent negative responses have been documented in the HPI. ROS Other: All systems not noted in ROS Statement are negative. Past Medical History Additional Past Medical History / Comment(s): back pain History of Any Multi-Drug Resistant Organisms: None Reported Date of last positivie culture/infection: 09/12/23 MDRO Source:: left buttock Past Surgical History: Orthopedic Surgery Past Anesthesia/Blood Transfusion Reactions: No Reported Reaction Past Psychological History: No Psychological Hx Reported Smoking Status: Former smoker Past Alcohol Use History: None Reported Past Drug Use History: None Reported - Past Family History Mother Family Medical History: Cancer Additional Family Medical History / Comment(s): lung cancer General Exam Limitations: no limitations General appearance: alert, in no apparent distress Head exam: Present: atraumatic, normocephalic, normal inspection Eye exam: Present: normal appearance, PERRL, EOMI. Absent: scleral icterus, conjunctival injection, periorbital swelling ENT exam: Present: normal exam, mucous membranes moist Neck exam: Present: normal inspection. Absent: tenderness, meningismus, lymphadenopathy Respiratory exam: Present: normal lung sounds bilaterally. Absent: respiratory distress, wheezes, rales, rhonchi, stridor Cardiovascular Exam: Present: regular rate, normal rhythm, normal heart sounds. Absent: systolic murmur, diastolic murmur, rubs, gallop, clicks GI/Abdominal exam: Present: soft, normal bowel sounds. Absent: distended, tenderness, guarding, rebound, rigid Extremities exam: Present: normal inspection, full ROM, normal capillary refill. Absent: tenderness, pedal edema, joint swelling, calf tenderness Back exam: Present: normal inspection Neurological exam: Present: alert, oriented X3, CN II-XII intact Psychiatric exam: Present: normal affect, normal mood Skin exam: Present: warm, dry, intact, normal color. Absent: rash Course Vital Signs 02/09/22/23 09/22/23 18:00 18:02 18:30 Temperature 98.5 F Pulse Rate 55 L 87 59 L Respiratory 18 18 20 Rate Blood Pressure 146/85 157/66 157/66 O2 Sat by Pulse 98 97 97 Oximetry 09/22/23 19:00 Temperature Pulse Rate 61 Respiratory 18 Rate Blood Pressure 144/78 O2 Sat by Pulse 97 Oximetry Medical Decision Making - Medical Decision Making Was pt. sent in by a medical professional or institution (, [place], COMMISSIONING AGENT, urgent care, hospital, or fdc...) When possible be specific @ -Sent in from [facility] Did you speak to anyone other than the patient for history (EMS, parent, family, police, friend...)? What history was obtained from this source @ -EMS Did you review nursing and triage notes (agree or disagree)? Why? @ -I reviewed and agree with nursing and triage notes Were old charts reviewed (outside hosp., previous admission, EMS record, old EKG, old radiological studies, urgent care reports/EKG's, fdc records)? Report findings @ -I reviewed patient's recent hospitalization discharge summary as well as her labs in order to compare her hemoglobin Differential Diagnosis (chest pain, altered mental status, abdominal pain women, abdominal pain men, vaginal bleeding, weakness, fever, dyspnea, syncope, headache, dizziness, GI bleed, back pain, seizure, CVA, palpatations, mental health, musculoskeletal)? @ -Differential GI Bleed: Esophageal varices, aortoenteric fistula, [place], gastritis, peptic ulcer disease, diverticulosis, inflammatory bowel disease, hemorrhoids, fissure, colitis, malignancy, Meckels diverticulum, this is not meant to be an all- inclusive list. EKG interpreted by me (3pts min.). @ -Not done X-rays interpreted by me (1pt min.). @ -None done CT interpreted by me (1pt min.). @ -None done U/S interpreted by me (1pt. min.). @ -None done What testing was considered but not performed or refused? (CT, X-rays, U/S, labs)? Why? @ -None What meds were considered but not given or refused? Why? @ -None Did you discuss the management of the patient with other professionals (professionals i.e. , PA, COMMISSIONING AGENT, lab, RT, psych nurse, hospice social worker, boat officer, teacher, aoc airspace control officer, test case developer)? Give summary @ -No Was smoking cessation discussed for >3mins.? @ -No Was critical care preformed (if so, how long)? @ -No Were there social determinants of health that impacted care today? How? (Homelessness, low income, unemployed, alcoholism, drug addiction, transportation, low edu. Level, literacy, decrease access to med. care, detention, rehab)? @ -Patient is coming from rehab Was there de-escalation of care discussed even if they declined (Discuss DNR or withdrawal of care, Hospice)? DNR status @ -No What co-morbidities impacted this encounter? (DM, HTN, Smoking, COPD, CAD, Cancer, CVA, ARF, Chemo, Hep., AIDS, mental health diagnosis, sleep apnea, morbid obesity)? @ -Sacral wound Was patient admitted / discharged? Hospital course, mention meds given and route, prescriptions, significant lab abnormalities, going to OR and other pertinent info. @ -Transferred back to her facility. Hemoglobin was confirmed and found to be normal. Patient will be transferred back if she requires no further care at this time Undiagnosed new problem with uncertain prognosis? @ -No Drug Therapy requiring intensive monitoring for toxicity (Heparin, Nitro, Insulin, Cardizem)? @ -No Were any procedures done? @ -No Diagnosis/symptom? @ -Reported acute anemia Acute, or Chronic, or Acute on Chronic? @ -Acute Uncomplicated (without systemic symptoms) or Complicated (systemic symptoms)? @ -Complicated Side effects of treatment? @ -No Exacerbation, Progression, or Severe Exacerbation? @ -No Poses a threat to life or bodily function? How? (Chest pain, [place], [place], pneumonia, PE, COPD, DKA, ARF, appy, cholecystitis, CVA, Diverticulitis, Homicidal, Suicidal, threat to staff... and all critical care pts) @ -No - Lab Data Result diagrams: 09/22/23 18:05 09/22/23 18:05 Lab Results 09/22/23 09/22/23 09/22/23 Range/Units 18:00 18:05 18:05 WBC 8.1 (3.8-10.6) k/uL RBC 3.53 L (3.80-5.40) m/uL Hgb 11.5 (11.4-16.0) gm/dL Hct 34.5 (34.0-46.0) % MCV 97.8 (80.0-100.0) fL MCH 32.6 (25.0-35.0) pg MCHC 33.3 (31.0-37.0) g/dL RDW 14.3 (11.5-15.5) % Plt Count 460 H D (150-450) k/uL MPV 8.9 Neutrophils % 62 % Lymphocytes % 25 % Monocytes % 6 % Eosinophils % 3 % Basophils % 1 % Neutrophils # 5.0 (1.3-7.7) k/uL Lymphocytes # 2.0 (1.0-4.8) k/uL Monocytes # 0.5 (0-1.0) k/uL Eosinophils # 0.3 (0-0.7) k/uL Basophils # 0.1 (0-0.2) k/uL Hypochromasia Slight Sodium 142 (137-145) mmol/L Potassium 3.8 (3.5-5.1) mmol/L Chloride 113 H (98-107) mmol/L Carbon Dioxide 22 (22-30) mmol/L Anion Gap 7 mmol/L BUN 13 (7-17) mg/dL Creatinine 0.76 (0.52-1.04) mg/dL Est GFR (CKD-EPI)AfAm >90 (>60 ml/min/1.73 sqM) Est GFR (CKD-EPI)NonAf 85 (>60 ml/min/1.73 sqM) Glucose 80 (74-99) mg/dL Calcium 8.9 (8.4-10.2) mg/dL Magnesium 2.3 (1.6-2.3) mg/dL Total Bilirubin 0.4 (0.2-1.3) mg/dL AST 22 (14-36) U/L ALT 21 (4-34) U/L Alkaline Phosphatase 88 (38-126) U/L Total Protein 6.0 L (6.3-8.2) g/dL Albumin 3.2 L (3.5-5.0) g/dL Blood Type A Positive Blood Type Confirm Blood Type Recheck No Previous Record Bld Type Recheck Status CABO Indicated Antibody Screen NEGATIVE Spec Expiration Date 09/25/2023 - 230409/22/23 Range/Units 18:05 WBC (3.8-10.6) k/uL RBC (3.80-5.40) m/uL Hgb (11.4-16.0) gm/dL Hct (34.0-46.0) % MCV (80.0-100.0) fL MCH (25.0-35.0) pg MCHC (31.0-37.0) g/dL RDW (11.5-15.5) % Plt Count (150-450) k/uL MPV Neutrophils % % Lymphocytes % % Monocytes % % Eosinophils % % Basophils % % Neutrophils # (1.3-7.7) k/uL Lymphocytes # (1.0-4.8) k/uL Monocytes # (0-1.0) k/uL Eosinophils # (0-0.7) k/uL Basophils # (0-0.2) k/uL Hypochromasia Sodium (137-145) mmol/L Potassium (3.5-5.1) mmol/L Chloride (98-107) mmol/L Carbon Dioxide (22-30) mmol/L Anion Gap mmol/L BUN (7-17) mg/dL Creatinine (0.52-1.04) mg/dL Est GFR (CKD-EPI)AfAm (>60 ml/min/1.73 sqM) Est GFR (CKD-EPI)NonAf (>60 ml/min/1.73 sqM) Glucose (74-99) mg/dL Calcium (8.4-10.2) mg/dL Magnesium (1.6-2.3) mg/dL Total Bilirubin (0.2-1.3) mg/dL AST (14-36) U/L ALT (4-34) U/L Alkaline Phosphatase (38-126) U/L Total Protein (6.3-8.2) g/dL Albumin (3.5-5.0) g/dL Blood Type Blood Type Confirm A Positive Blood Type Recheck Bld Type Recheck Status Antibody Screen Spec Expiration Date Disposition Clinical Impression: Low hemoglobin Disposition: HOME SELF-CARE Condition: Stable Instructions (If sedation given, give patient instructions): Normal Exam (ED) Additional Instructions: Your hemoglobin was normal on our repeat test - 11.5. Is patient prescribed a controlled substance at d/c from ED?: No Referrals: Armen Brown DO [Primary Care Provider] - 1-2 days Time of Disposition: 19:44
== END 2023-09-22 21:04 | disposition home or self-care (01) ==
LOC: EC 17:46
DX: D64.9 Anemia, unspecified (principal); Z87.891 Personal history of nicotine dependence; Z88.8 Allergy status to other drugs, medicaments and biological substances; Z88.6 Allergy status to analgesic agent
CPT/HCPCS: 36415; 80053; 83735; 85025; 86850; 86900; 86901; 99284